=== PATIENT | female | born 1940 | race Caucasian/White ===

== ENCOUNTER → 2019-05-31 | Outpatient (CLI) | payer MEDICARE, OTHER ==
--- NOTE | 2019-05-31 16:19 | Diagnostic Imaging Report ---
INDICATION: Acute right ankle pain. COMPARISON: None. FINDINGS: Three views of the right ankle were obtained. There is no acute fracture or dislocation. No focal osseous lesions are seen. The surrounding soft tissue structures are unremarkable. There are no radiopaque foreign bodies. IMPRESSION: 1. No acute fracture or dislocation in the right ankle. Dictated by: Dictated on workstation # [id number]
== END ==
LOC: RAD FS 15:28
PROVIDERS: ATTEND Nurse Practitioner Family
DX: M25.571 Pain in right ankle and joints of right foot (principal)
CPT/HCPCS: 73610

== ENCOUNTER → 2020-11-18 | Emergency (ER) | payer MEDICARE, OTHER | LOC: EDUNIT# 14:35 → ER FS 14:36 | DX: R09.89 Other specified symptoms and signs involving the circulatory and respiratory systems (principal) ==

== ENCOUNTER 2021-07-03 14:54 | Inpatient (IN) | payer MEDICARE, OTHER ==
[~2021-07-03] VITALS: Ht 162.6 cm; Wt 67.8 kg
[2021-07-03 15:12] LABS: HEMATOCRIT 30 % (35-52); HEMOGLOBIN 9.7 g/dL (11.5-16.0); LYMPHOCYTES % (AUTO) 17 % (12-44); MEAN CORPUSCULAR HEMOGLOBIN 29 pg (25-34); MEAN CORPUSCULAR HGB CONC 32 g/dL (32-36); MEAN CORPUSCULAR VOLUME 91 fL (80-99); MEAN PLATELET VOLUME 12.3 fL (9.0-12.2); NEUTROPHILS % (AUTO) 73 % (42-75); PLATELET COUNT 154 10^3/uL (130-400); WHITE BLOOD COUNT 6.5 10^3/uL (4.3-11.0)
[2021-07-03 15:13] LABS: BASOPHILS % (AUTO) 1 % (0-10); EOSINOPHILS # (AUTO) 0.1 10^3/uL (0.0-0.3); EOSINOPHILS % (AUTO) 1 % (0-10); LYMPHOCYTES # (AUTO) 1.1 X 10^3 (1.0-4.0); MONOCYTES # (AUTO) 0.5 X 10^3 (0.0-1.0); MONOCYTES % (AUTO) 8 % (0-12); NEUTROPHILS # (AUTO) 4.7 X 10^3 (1.8-7.8)
--- NOTE | 2021-07-03 15:18 | ED General ---
General Chief Complaint: Neuro-Stroke Like Symptoms Stated Complaint: LWR EXT WEAKNESS; DIZZINESS History of Present Illness Date Seen by Provider: Jul 03, 2021 Time Seen by Provider: 15:00 Initial Comments 80-year-old female presents with some right lower extremity weakness, generalized weakness and some mild dizziness. Patient reports that she feels like her right leg is "dragging" they are unsure when this started but may be sometime early this morning. She has no other focal weakness. She does have some generalized weakness. She is a diabetic but has not checked her blood sugars in a few days. EMS reports that her blood sugar reading was high and reading was higher than what their machine reads. Patient would not give a reason for not checking her blood sugars recently. Patient denies any slurred speech, vision changes, upper extremity weakness or other systemic complaints Allergies and Home Medications Allergies Coded Allergies: codeine (Verified Allergy, Unknown, 07/03/21) Patient Home Medication List Home Medication List Reviewed: Yes Review of Systems Review of Systems Constitutional: dizziness, weakness EENTM: no symptoms reported Respiratory: no symptoms reported Cardiovascular: no symptoms reported Gastrointestinal: no symptoms reported Musculoskeletal: see HPI Skin: no symptoms reported Psychiatric/Neurological: See HPI Hematologic/Lymphatic: No Symptoms Reported Immunological/Allergic: no symptoms reported Past Nupnylq-Wzisea-Cqltir Hx Patient Social History Tobacco Use?: No Use of E-Cig and/or Vaping dev: No Substance use?: No Alcohol Use?: No Immunizations Up To Date First/Initial COVID19 Vaccinat: Not Currently Vaccinated Past Medical History Surgery/Hospitalization HX: DM; HTN Physical Exam Vital Signs Vital Signs - First Documented 07/03/21 14:54 Temp 36.7 Pulse 72 Resp 20 B/P (MAP) 135/42 (73) Pulse Ox 98 O2 Delivery Room Air Capillary Refill : Height, Weight, BMI Height: '" Weight: lbs. oz. kg; BMI Method: General Appearance: No Apparent Distress, WD/WN Eyes: Bilateral Eye Normal Inspection, Bilateral Eye PERRL HEENT: PERRL/EOMI, Moist Mucous Membranes Neck: Full Range of Motion, Non Tender, Supple Respiratory: Lungs Clear, Normal Breath Sounds Cardiovascular: Regular Rate, Rhythm, No Edema Gastrointestinal: Non Tender, Soft Extremity: Normal Capillary Refill, Normal Inspection, Normal Range of Motion Neurologic/Psychiatric: Alert, No Motor/Sensory Deficits, Normal Mood/Affect, paper pattern inspector II-XII Norm as Tested, Other (Patient with may be very minimal barely detectable right lower extremity weakness compared to but she still has 5 out of 5 strength with no significant abnormality) Skin: Normal Color, Warm/Dry Focused Exam Lactate Level 07/03/21 15:05: Lactic Acid Level 1.40 Lactic Acid Level Laboratory Tests Test 07/03/21 15:05 Lactic Acid Level 1.40 MMOL/L (0.50-2.00) Progress/Results/Core Measures Suspected Sepsis SIRS Temperature: Pulse: Respiratory Rate: Laboratory Tests 07/03/21 15:05: White Blood Count 6.5 Blood Pressure / Mean: 07/03/21 15:05: Lactic Acid Level 1.40 Laboratory Tests 07/03/21 15:05: Creatinine 1.63H, INR Comment 1.1, Platelet Count 154, Total Bilirubin 0.5 Results/Orders Lab Results Laboratory Tests Test 07/03/21 15:05 07/03/21 15:40 07/03/21 16:34 Range/Units White Blood Count 6.5 4.3-11.0 10^3/uL Red Blood Count 3.32 L 3.80-5.11 10^6/uL Hemoglobin 9.7 L 11.5-16.0 g/dL Hematocrit 30 L 35-52 % Mean Corpuscular Volume 91 80-99 fL Mean Corpuscular Hemoglobin 29 25-34 pg Mean Corpuscular Hemoglobin Concent 32 32-36 g/dL Red Cell Distribution Width 13.5 10.0-14.5 % Platelet Count 154 130-400 10^3/uL Mean Platelet Volume 12.3 H 9.0-12.2 fL Immature Granulocyte % (Auto) 0 % Neutrophils (%) (Auto) 73 42-75 % Lymphocytes (%) (Auto) 17 12-44 % Monocytes (%) (Auto) 8 0-12 % Eosinophils (%) (Auto) 1 0-10 % Basophils (%) (Auto) 1 0-10 % Neutrophils # (Auto) 4.7 1.8-7.8 X 10^3 Lymphocytes # (Auto) 1.1 1.0-4.0 X 10^3 Monocytes # (Auto) 0.5 0.0-1.0 X 10^3 Eosinophils # (Auto) 0.1 0.0-0.3 10^3/uL Basophils # (Auto) 0.0 0.0-0.1 10^3/uL Immature Granulocyte # (Auto) 0.0 0.0-0.1 10^3/uL Prothrombin Time 15.0 H 12.2-14.7 SEC INR Comment 1.1 0.8-1.4 Activated Partial Thromboplast Time 23 L 24-35 SEC Sodium Level 132 L 135-145 MMOL/L Potassium Level 5.6 H 3.6-5.0 MMOL/L Chloride Level 101 98-107 MMOL/L Carbon Dioxide Level 18 L 21-32 MMOL/L Anion Gap 13 5-14 MMOL/L Blood Urea Nitrogen 26 H 7-18 MG/DL Creatinine 1.63 H 0.60-1.30 MG/DL Estimat Glomerular Filtration Rate 30 BUN/Creatinine Ratio 16 Glucose Level 685 *H 70-105 MG/DL Glucometer 553 *H 464 *H 70-110 MG/DL Lactic Acid Level 1.40 0.50-2.00 MMOL/L Calcium Level 8.3 L 8.5-10.1 MG/DL Corrected Calcium 9.1 8.5-10.1 MG/DL Magnesium Level 2.0 1.6-2.4 MG/DL Total Bilirubin 0.5 0.1-1.0 MG/DL Aspartate Amino Transf (AST/SGOT) 11 5-34 U/L Alanine Aminotransferase (ALT/SGPT) 8 0-55 U/L Alkaline Phosphatase 79 40-136 U/L Troponin I < 0.30 <0.30 NG/ML Total Protein 5.5 L 6.4-8.2 GM/DL Albumin 3.0 L 3.2-4.5 GM/DL Urine Color YELLOW Urine Clarity CLOUDY Urine pH 6.0 5-9 Urine Specific [place] 1.020 1.016-1.022 Urine Protein NEGATIVE NEGATIVE Urine Glucose (UA) 4+ H NEGATIVE Urine Ketones 2+ H NEGATIVE Urine Nitrite NEGATIVE NEGATIVE Urine Bilirubin NEGATIVE NEGATIVE Urine Urobilinogen 0.2 < = 1.0 MG/DL Urine Leukocyte Esterase 3+ H NEGATIVE Urine RBC (Auto) 3+ H NEGATIVE Urine RBC NONE /HPF Urine WBC TNTC H /HPF Urine Squamous Epithelial Cells NONE /HPF Urine Crystals NONE /LPF Urine Bacteria LARGE H /HPF Urine Casts NONE /LPF Urine Mucus NEGATIVE /LPF Urine Culture Indicated YES My Orders Orders - TURNER,ARON L DO Ct Head Wo-R/O Stroke (07/03/21 14:56) Cbc With Automated Diff (07/03/21 14:56) Comprehensive Metabolic Panel (07/03/21 14:56) Lactic Acid Analyzer (07/03/21 14:56) Magnesium (07/03/21 14:56) Protime With Inr (07/03/21 14:56) Partial Thromboplastin Time (07/03/21 14:56) Ua Culture If Indicated (07/03/21 14:56) Accucheck Stat ONCE (07/03/21 14:56) Troponin I Fs (07/03/21 14:56) Ekg Tracing (07/03/21 14:56) Monitor-Rhythm Ecg Trace Only (07/03/21 14:56) Chest 1 View Ap/Pa Only (07/03/21 14:56) Lactated Ringers (Lr 1000 Ml Iv Solution (07/03/21 15:21) Insulin (Regular) Human (Novolin R (Per (07/03/21 16:00) Ceftriaxone (Rocephin) (07/03/21 16:00) Urine Culture (07/03/21 15:40) Insulin (Regular) Drip (07/03/21 17:00) Medications Given in ED Current Medications Medications Dose Ordered Sig/Sebastian Route Start Time Stop Time Status Last Admin Dose Admin Ceftriaxone Sodium 2000 mg/ Sodium Chloride 50 ml @ 240 mls/hr ONCE ONCE IV 07/03/21 16:00 07/03/21 16:12 DC 07/03/21 16:09 240 MLS/HR Insulin Human Regular 10 unit ONCE ONCE IV 07/03/21 16:00 07/03/21 16:01 DC 07/03/21 15:59 10 UNIT Vital Signs/I&O 07/03/21 14:54 Temp 36.7 Pulse 72 Resp 20 B/P (MAP) 135/42 (73) Pulse Ox 98 O2 Delivery Room Air Capillary Refill : Point of Care Testing Finger Stick Blood Glucose: 553 Blood Glucose Action Taken: Physician Notified Progress Note : Progress Note Patient with significantly elevated high blood sugar. Patient has not checked her blood sugars in at least a couple months. She was given 2 L IV prior to arrival by EMS due to her age I did not provide any further IV fluids. She was given 10 units IV insulin and her insulin went from the 600s to the 400s. Patient also has an acute cystitis. Along with some mild acute kidney injury due to the high blood sugar, acute urinary tract infection and mild kidney injur y in her age we will transfer her to the [facility] for further inpatient management. Discussed with Dr. Mendoza who accepted patient and will write orders ECG Initial ECG Impression Date: Jul 03, 2021 Initial ECG Impression Time: 15:17 Initial ECG Rate: 72 Initial ECG Rhythm: Normal Sinus Initial ECG Impression: Nonspecific Changes Comment sinus rhythm, RBBB, LVH, old infarct, no acute changes Diagnostic Imaging Diagonstic Imaging: CT Plain Films/CT/US/NM/MRI: head Comments Date of Exam:07/03/21 CT HEAD WO-R/O STROKE INDICATION: Right leg weakness. EXAMINATION: CT brain without contrast, 07/03/2021. FINDINGS: There is diffuse chronic ischemic disease in a periventricular and deep white matter distribution. No acute hemorrhage or infarct is seen. No mass, mass effect or midline shift appreciated. Paranasal sinuses and mastoid air cells clear. IMPRESSION: No acute intracranial process. Reviewed: Reviewed/Discussed Diagonstic Imaging: Xray Plain Films/CT/US/NM/MRI: chest Comments Date of Exam:07/03/21 CHEST 1 VIEW AP/PA ONLY EXAMINATION: Chest 1 view. HISTORY: Weakness. COMPARISON: None available. FINDINGS: Heart size and pulmonary vasculature are normal. The lungs are clear without consolidation, pleural effusion or pneumothorax. The osseous structures are intact. IMPRESSION: No acute radiographic abnormality in the chest. Reviewed: Reviewed by Me, Reviewed/Discussed Departure Impression Primary Impression: Diabetes mellitus with hyperglycemia, without long-term current use of insulin Qualified Codes: E11.65 - Type 2 diabetes mellitus with hyperglycemia Additional Impression: Acute cystitis with hematuria Disposition: 30 STILL A PATIENT Condition: Stable Admissions Decision to Admit Reason: Admit from ER (General) Decision to Admit/Date: Jul 03, 2021 Time/Decision to Admit Time: 16:49 Departure-Patient Inst. Referrals: NICOLE FAJARDO APRN (PCP) Primary Care Physician [facility] (Family) Primary Care Physician ARON TURNER DO Jul 03, 2021 15:18
[2021-07-03] MEDS ORDERED: LACTATED RINGERS 1,000 ML IV STA (15:21)
[2021-07-03 15:23] LABS: INR 1.1 (0.8-1.4)
--- NOTE | 2021-07-03 15:35 | Diagnostic Imaging Report ---
EXAMINATION: Chest 1 view. HISTORY: Weakness. COMPARISON: None available. FINDINGS: Heart size and pulmonary vasculature are normal. The lungs are clear without consolidation, pleural effusion or pneumothorax. The osseous structures are intact. IMPRESSION: No acute radiographic abnormality in the chest. Dictated by: Dictated on workstation # [id number]
[2021-07-03 15:43] LABS: POTASSIUM 5.6 MMOL/L (3.6-5.0); SODIUM 132 MMOL/L (135-145)
[2021-07-03 15:44] LABS: ALANINE AMINOTRANSFERASE 8 U/L (0-55); ALKALINE PHOSPHATASE 79 U/L (40-136); BILIRUBIN,TOTAL 0.5 MG/DL (0.1-1.0); BUN/CREATININE RATIO 16; CALCIUM 8.3 MG/DL (8.5-10.1); CARBON DIOXIDE 18 MMOL/L (21-32); CHLORIDE 101 MMOL/L (98-107); CREATININE SERUM 1.63 MG/DL (0.60-1.30); GFR ESTIMATED 30; GLUCOSE 685 MG/DL (70-105); TOTAL PROTEIN 5.5 GM/DL (6.4-8.2)
[2021-07-03] MEDS ORDERED: inSUlin (REGULAR) HUMAN 1 UNIT/0.01 ML (CHARGE PER UNIT) IV ONE ×2 (16:00)
[2021-07-03] MEDS ORDERED: cefTRIAXone 2,000 MG in NS (IVPB) 50 ML IV ONE (16:00)
[2021-07-03 16:02] LABS: CLARITY,URINE CLOUDY; COLOR,URINE YELLOW
[2021-07-03 16:03] LABS: GLUCOSE, URINE (UA) 4+ (NEGATIVE); KETONES,URINE 2+ (NEGATIVE); NITRITE,URINE NEGATIVE (NEGATIVE); PROTEIN,URINE NEGATIVE (NEGATIVE)
[2021-07-03 16:04] LABS: BACTERIA,URINE LARGE /HPF; BILIRUBIN,URINE NEGATIVE (NEGATIVE); LEUKOCYTE ESTERASE ,URINE 3+ (NEGATIVE); WBC,URINE TNTC /HPF
[2021-07-03] MEDS ORDERED: NS IV 1000 ML 1,000 ML IV SCH (18:30)
[2021-07-03] MEDS ORDERED: NALOXONE 0.4 MG/ML 1 ML (NARCAN) VIAL IV PRN (18:30)
[2021-07-03] MEDS ORDERED: cefTRIAXone 2,000 MG in NS (IVPB) 50 ML IV SCH (18:30)
[2021-07-03] MEDS ORDERED: POTASSIUM CL 10MEQ/50ML IVPB 50 ML IV SCH (18:30)
[2021-07-03] MEDS ORDERED: ONDANSETRON 4 MG/2 ML (SDV) Z0FRAN IVP PRN (18:30)
[2021-07-03] MEDS ORDERED: PATIENT MAY USE OWN MEDS, ALL PO SCH (18:30)
--- NOTE | 2021-07-03 18:54 | Tele-ICU Consult ---
Progress Note 80 y/o female, diabetic who has not checked her blood sugr regularly. Came to ED with non specifc complints BS found to be 685 Admitted to ICU for insulin drip and monitor electrolytes antibiotics started for possible cystitis, although asympytomatic Focused Exam Lactate Level 07/03/21 15:05: Lactic Acid Level 1.40 Height, Weight, BMI Height: '" Weight: lbs. oz. kg; 24.00 BMI Method: Lactic Acid Level Laboratory Tests Test 07/03/21 15:05 Lactic Acid Level 1.40 MMOL/L (0.50-2.00) Laboratory Tests 07/03/21 15:05 Labs Labs Laboratory Tests 07/03/21 15:05: White Blood Count 6.5, Red Blood Count 3.32L, Hemoglobin 9.7L, Hematocrit 30L, Mean Corpuscular Volume 91, Mean Corpuscular Hemoglobin 29, Mean Corpuscular Hemoglobin Concent 32, Red Cell Distribution Width 13.5, Platelet Count 154, Mean Platelet Volume 12.3H, Immature Granulocyte % (Auto) 0, Neutrophils (%) (Auto) 73, Lymphocytes (%) (Auto) 17, Monocytes (%) (Auto) 8, Eosinophils (%) (Auto) 1, Basophils (%) (Auto) 1, Neutrophils # (Auto) 4.7, Lymphocytes # (Auto) 1.1, Monocytes # (Auto) 0.5, Eosinophils # (Auto) 0.1, Basophils # (Auto) 0.0, Immature Granulocyte # (Auto) 0.0, Prothrombin Time 15.0H, INR Comment 1.1, Activated Partial Thromboplast Time 23L, Sodium Level 132L, Potassium Level 5.6H , Chloride Level 101, Carbon Dioxide Level 18L, Anion Gap 13, Blood Urea Nitrogen 26H, Creatinine 1.63H, Estimat Glomerular Filtration Rate 30, BUN/Creatinine Ratio 16, Glucose Level 685*H, Glucometer 553*H, Lactic Acid Level 1.40, Calcium Level 8.3L, Corrected Calcium 9.1, Magnesium Level 2.0, Total Bilirubin 0.5, Aspartate Amino Transf (AST/SGOT) 11, Alanine Aminotransferase (ALT/SGPT) 8, Alkaline Phosphatase 79, Troponin I < 0.30, Total Protein 5.5L, Albumin 3.0L 07/03/21 15:40: Urine Color YELLOW, Urine Clarity CLOUDY, Urine pH 6.0, Urine Specific [place] 1.020, Urine Protein NEGATIVE, Urine Glucose (UA) 4+H, Urine Ketones 2+H, Urine Nitrite NEGATIVE, Urine Bilirubin NEGATIVE, Urine Urobilinogen 0.2, Urine Leukocyte Esterase 3+H, Urine RBC (Auto) 3+H, Urine RBC NONE, Urine WBC TNTCH, Urine Squamous Epithelial Cells NONE, Urine Crystals NONE, Urine Bacteria LARGEH , Urine Casts NONE, Urine Mucus NEGATIVE, Urine Culture Indicated YES 07/03/21 16:34: Glucometer 464*H 07/03/21 18:15: Glucometer 347H DAVE STACK MD Jul 03, 2021 18:54
[2021-07-03] MEDS ORDERED: 1/2 NS IV SOLUTION 1,000 ML IV ONE (18:55)
[2021-07-03 19:00] LABS: HEMATOCRIT 31 % (35-52); HEMOGLOBIN 9.9 g/dL (11.5-16.0); MEAN CORPUSCULAR HEMOGLOBIN 29 pg (25-34); MEAN CORPUSCULAR HGB CONC 32 g/dL (32-36); MEAN CORPUSCULAR VOLUME 92 fL (80-99); MEAN PLATELET VOLUME 11.8 fL (9.0-12.2); PLATELET COUNT 194 10^3/uL (130-400); WHITE BLOOD COUNT 8.3 10^3/uL (4.3-11.0)
[2021-07-03 19:14] LABS: POTASSIUM 4.6 MMOL/L (3.6-5.0)
[2021-07-03 19:15] LABS: CALCIUM 8.3 MG/DL (8.5-10.1)
[2021-07-03 19:19] LABS: CREATININE SERUM 1.82 MG/DL (0.60-1.30)
[2021-07-03] MEDS: 1/2 NS IV SOLUTION 1,000 ML IV SCH ×2 (19:54→22:04)
[2021-07-03] MEDS: NS IV 1000 ML 1,000 ML IV SCH ×2 (19:55→22:04)
[2021-07-03] MEDS ORDERED: POTASSIUM CL 10MEQ/50ML IVPB 50 ML IV ONE (19:57)
[2021-07-03] MEDS: POTASSIUM CL 10MEQ/50ML IVPB 50 ML IV SCH ×3 (20:02→23:56)
[2021-07-03 21:14] LABS: POTASSIUM 4.7 MMOL/L (3.6-5.0)
[2021-07-03 21:15] LABS: CALCIUM 8.3 MG/DL (8.5-10.1)
[2021-07-03 21:20] LABS: CREATININE SERUM 1.75 MG/DL (0.60-1.30)
[2021-07-03] MEDS: D5 1/2 NS 1000 ML IV SOLUTION 1,000 ML IV SCH (21:58)
[2021-07-04] MEDS: 1/2 NS IV SOLUTION 1,000 ML IV SCH ×3 (01:01→11:48)
[2021-07-04 01:20] LABS: CALCIUM 7.9 MG/DL (8.5-10.1)
[2021-07-04 01:24] LABS: CREATININE SERUM 1.71 MG/DL (0.60-1.30)
[2021-07-04] MEDS: POTASSIUM CL 10MEQ/50ML IVPB 50 ML IV SCH ×3 (01:53→06:58)
[2021-07-04] MEDS: D5 1/2 NS 1000 ML IV SOLUTION 1,000 ML IV SCH ×2 (01:59→06:13)
[2021-07-04 05:15] LABS: BASOPHILS % (AUTO) 1 % (0-10); EOSINOPHILS # (AUTO) 0.2 10^3/uL (0.0-0.3); EOSINOPHILS % (AUTO) 3 % (0-10); HEMATOCRIT 29 % (35-52); HEMOGLOBIN 9.3 g/dL (11.5-16.0); LYMPHOCYTES # (AUTO) 2.1 10^3/uL (1.0-4.0); LYMPHOCYTES % (AUTO) 29 % (12-44); MEAN CORPUSCULAR HEMOGLOBIN 29 pg (25-34); MEAN CORPUSCULAR HGB CONC 32 g/dL (32-36); MEAN CORPUSCULAR VOLUME 91 fL (80-99); MEAN PLATELET VOLUME 11.9 fL (9.0-12.2); MONOCYTES # (AUTO) 0.8 10^3/uL (0.0-1.0); MONOCYTES % (AUTO) 11 % (0-12); NEUTROPHILS % (AUTO) 56 % (42-75); PLATELET COUNT 179 10^3/uL (130-400)
[2021-07-04 05:38] LABS: ALBUMIN 2.8 GM/DL (3.2-4.5); POTASSIUM 4.7 MMOL/L (3.6-5.0)
[2021-07-04 05:39] LABS: CALCIUM 7.9 MG/DL (8.5-10.1)
[2021-07-04 05:41] LABS: TOTAL PROTEIN 5.2 GM/DL (6.4-8.2)
[2021-07-04 05:42] LABS: BILIRUBIN,TOTAL 0.3 MG/DL (0.1-1.0)
[2021-07-04 05:44] LABS: CREATININE SERUM 1.44 MG/DL (0.60-1.30); PHOSPHORUS 2.1 MG/DL (2.3-4.7)
[2021-07-04 05:47] LABS: MAGNESIUM 1.8 MG/DL (1.6-2.4)
[2021-07-04] MEDS: FAMOTIDINE 20 MG (PEPCID) TABLET PO SCH (08:59)
[2021-07-04] MEDS: cefTRIAXone 1 GM/50 ML (PRE-MIX) IV SCH (08:59)
[2021-07-04] MEDS: NS IV 1000 ML 1,000 ML IV SCH ×3 (09:04→19:29)
[2021-07-04 09:49] LABS: POTASSIUM 4.9 MMOL/L (3.6-5.0)
[2021-07-04 09:55] LABS: CREATININE SERUM 1.42 MG/DL (0.60-1.30)
[2021-07-04] MEDS: inSUlin ASPART (NovoLOG) 1 UNIT/0.01 ML (CHARGE PER UNIT) SC SCH ×3 (11:49→20:22)
--- NOTE | 2021-07-04 11:52 | History & Physical-Hospitalist ---
History of Present Illness HPI/Chief Complaint Chief complaint: Severe hyperglycemia History of present illness: This is an 80-year-old white female clinic patient of Livier Allen who has a past medical history of diabetes but does not check her sugar who presented to the [facility] with weakness found to have significantly elevated blood sugar in the 600 range. UTI was also diagnosed placed on Rocephin empirically. She was placed in the ICU on an insulin drip for hyperglycemic hyperosmolar nonketotic state. She is since had much improved sugars insulin drip has been discontinued and is currently being moved to fourth floor. Source: patient, family Exam Limitations: other (Poor recall) Date Seen 07/04/21 Time Seen by a Provider: 11:30 Attending Physician Omaira Mendoza Amanda S Aprn Referring Physician Date of Admission Jul 03, 2021 at 18:15 Home Medications & Allergies Home Medications Reviewed patient Home Medication Reconciliation performed by pharmacy medication reconciliations combination technician and/or nursing. Patients Allergies have been reviewed. Allergies Allergies Coded Allergies egg (Verified Allergy, Mild, Nausea, 07/04/21) codeine (Verified Allergy, Unknown, 07/03/21) Past Uvxilkw-Rsntnz-Jsrfor Hx Patient Social History Marrital Status: Employed/Student: retired Tobacco Use?: No Smoking Status: Never a Smoker Use of E-Cig and/or Vaping dev: No Substance use?: No Alcohol Use?: No Pt feels they are or have been: No Immunizations Up To Date Date of Influenza Vaccine: Jun 02, 2021 First/Initial COVID19 Vaccinat: Not Currently Vaccinated Current Status status: No status: No Advance Directives: No Communicates: Verbally Primary Language: Romansh Preferred Spoken Language: Romansh Is interpretation needed?: No Sensory deficits: Vision impairment Implanted or Applied Medical D: Stents Past Medical History Dementia Diabetes, Non-Insulin dep Review of Systems Constitutional: see HPI, dizziness, malaise, weakness EENTM: no symptoms reported Respiratory: no symptoms reported Cardiovascular: no symptoms reported Gastrointestinal: no symptoms reported Genitourinary: no symptoms reported Musculoskeletal: no symptoms reported Skin: no symptoms reported Psychiatric/Neurological: No Symptoms Reported All Other Systems Reviewed Negative Unless Noted: Yes Physical Exam Physical Exam Vital Signs Vital Signs - First Documented 07/03/21 14:54 Temp 36.7 Pulse 72 Resp 20 B/P (MAP) 135/42 (73) Pulse Ox 98 O2 Delivery Room Air Capillary Refill : Less Than 3 Seconds Height, Weight, BMI Height: '" Weight: lbs. oz. kg; 24.01 BMI Method: General Appearance: No Apparent Distress, Anxious, Chronically ill Eyes: Right Eye Normal Inspection, Right Eye PERRL HEENT: PERRL/EOMI, Normal ENT Inspection, Pharynx Normal, Moist Mucous Membranes Neck: Full Range of Motion, Normal Inspection, Non Tender Respiratory: Chest Non Tender, Lungs Clear, Normal Breath Sounds, No Accessory Muscle Use, No Respiratory Distress Cardiovascular: Regular Rate, Rhythm, No Edema, No Gallop, No JVD, No Murmur, Normal Peripheral Pulses Gastrointestinal: Normal Bowel Sounds, No Organomegaly, No Pulsatile Mass, Non Tender, Soft Back: Normal Inspection, No CVA Tenderness, No Vertebral Tenderness Extremity: Normal Capillary Refill, Normal Inspection, Normal Range of Motion, Non Tender, No Calf Tenderness, No Pedal Edema Neurologic/Psychiatric: Alert, Oriented x3, No Motor/Sensory Deficits, Normal Mood/Affect Skin: Normal Color, Warm/Dry Lymphatic: No Adenopathy Results Results/Procedures Labs Laboratory Tests 07/03/21 15:05 07/03/21 18:47 07/03/21 20:57 07/04/21 00:55 07/04/21 05:00 07/04/21 09:13 Patient resulted labs reviewed. Assessment/Plan Admission Diagnosis Assessment: Hyperosmolar hyperglycemic nonketotic state Diabetes noncompliant with checking sugar Acute UTI Poor recall/dementia Dehydration Plan: Transition to subcu insulin Moved to fourth floor Diabetic education Admission Status: Inpatient Order (span 2 midnights) Reason for Inpatient Admission: HHNS Diagnosis/Problems Diagnosis/Problems (1) Hyperosmolar hyperglycemic state (HHS) (2) Diabetes mellitus with hyperglycemia, without long-term current use of insulin Status: Acute Qualifiers: Diabetes mellitus type: type 2 Qualified Codes: E11.65 - Type 2 diabetes mellitus with hyperglycemia (3) Acute cystitis with hematuria Status: OMAIRA Moseley DO Jul 04, 2021 11:52
[2021-07-04] MEDS ORDERED: cloNIDine 0.1 MG (CATAPRES) TAB PO PRN (19:30)
[2021-07-04] MEDS ORDERED: amLODIPine 5 MG (NORVASC) TAB PO ONE (19:30)
[2021-07-05 05:43] LABS: BASOPHILS % (AUTO) 1 % (0-10); EOSINOPHILS # (AUTO) 0.3 10^3/uL (0.0-0.3); EOSINOPHILS % (AUTO) 4 % (0-10); HEMATOCRIT 30 % (35-52); HEMOGLOBIN 9.5 g/dL (11.5-16.0); LYMPHOCYTES # (AUTO) 2.1 10^3/uL (1.0-4.0); LYMPHOCYTES % (AUTO) 34 % (12-44); MEAN CORPUSCULAR HEMOGLOBIN 29 pg (25-34); MEAN CORPUSCULAR HGB CONC 32 g/dL (32-36); MEAN CORPUSCULAR VOLUME 91 fL (80-99); MEAN PLATELET VOLUME 11.5 fL (9.0-12.2); MONOCYTES # (AUTO) 0.6 10^3/uL (0.0-1.0); MONOCYTES % (AUTO) 10 % (0-12); NEUTROPHILS # (AUTO) 3.1 10^3/uL (1.8-7.8); NEUTROPHILS % (AUTO) 51 % (42-75); PLATELET COUNT 180 10^3/uL (130-400); WHITE BLOOD COUNT 6.1 10^3/uL (4.3-11.0)
[2021-07-05 05:59] LABS: ALBUMIN 2.7 GM/DL (3.2-4.5)
[2021-07-05 06:00] LABS: POTASSIUM 4.5 MMOL/L (3.6-5.0)
[2021-07-05 06:04] LABS: BILIRUBIN,TOTAL 0.2 MG/DL (0.1-1.0)
[2021-07-05 06:06] LABS: CREATININE SERUM 1.22 MG/DL (0.60-1.30)
[2021-07-05] MEDS: inSUlin ASPART (NovoLOG) 1 UNIT/0.01 ML (CHARGE PER UNIT) SC SCH ×4 (06:12→21:03)
[2021-07-05 06:47] LABS: ABG BASE EXCESS -7.9 MMOL/L (-2.5-2.5); ABG OXYGEN SATURATION 97 % (94-100); ABG PCO2 33 MMHG (35-45); ABG PO2 84 MMHG (79-93)
[2021-07-05 06:49] LABS: ABG PH 7.33 (7.37-7.43); ALLENS TEST YES-POS; INSPIRED O2 ROOM AIR; PATIENT TEMP 36.6; VENTILATOR NO
--- NOTE | 2021-07-05 09:41 | Physical Therapy Evaluation ---
PT Evaluation-General Medical Diagnosis Admission Date Jul 03, 2021 at 18:15 Medical Diagnosis: HHS Onset Date: Jul 03, 2021 Therapy Diagnosis Therapy Diagnosis: debility Precautions Precautions/Isolations: Fall Prevention, Standard Precautions Referral Physician: Kelly Reason for Referral: Evaluation/Treatment Medical History Pertinent Medical History: DM Current History EMS secondary to right LE weakness Reviewed History: Yes Social History Home: Current Living Status: Spouse Entry Into Home: Stairs With Railing PT Steps Into Home: 3 Prior Prior Level of Function SCALE: Activities may be completed with or without assistive devices. 7-Sfxzjhmwlc-mayjqnm completes the activity by him/herself with no assistance from a helper. 5-Set-up or Clean-up Assistance-helper sets up or cleans up; patient completes activity. [place]ese assists only prior to or following the activity. 4-Supervision or Touching Assistance-helper provides verbal cues and/or touching/steadying and/or contact guard assistance as patient completes activity. Assistance may be provided throughout the activity or intermittently. 3-Partial/Moderate Assistance-helper does LESS THAN HALF the effort. [place]ese lifts, holds or supports trunk or limbs, but provides less than half the effort. 2-Substantial/Maximal Assistance-helper does MORE THAN HALF the effort. [place]weese lifts or holds trunk or limbs and provides more than half the effort. 8-Wpvzyguli-doseku does ALL the effort. Patient does none of the effort to complete the activity. Or, the assistance of 2 or more helpers is required for the patient to complete the activity. If activity was not attempted, code reason: 7-Patient Refused. 9-Not Applicable-not attempted and the patient did not perform the activity before the current illness, exacerbation or injury. 10-Not Attempted due to Environmental Limitations-(lack of equipment, weather restraints, etc.). 88-Not Attempted due to Medical Conditions or Safety Concerns. Bed Mobility: 6 Transfers (B,C,W/C): 6 Gait: 6 Stairs: 6 Indoor Mobility (Ambulation): Independent Stairs: Independent Prior Devices Use: None PT Evaluation-Current Subjective Patient agrees to PT. Currently no C/o Pain Numeric Pain Scale: 0-No Pain Location: No Pain Reported Objective Patient Orientation: Normal For Age Attachments: Rios Catheter, IV ROM/Strength ROM Lower Extremities bilateral LE WFL Strength Lower Extremities 4/5 grossly bilateral LE Integumentary/Posture Bowel Incontinence: No Bladder Incontinence: Rios Cath Posture WFL Neuromuscular (Tone, Coordination, Reflexes) grossly intact Sensory Vision: Wears Glasses Hearing: Functional Transfers Roll Left to Right (QC): 6 Sit to Lying (QC): 6 Lying to Sitting/Side of Bed(Q: 6 Sit to Stand (QC): 4 Chair/Hxl-fg-Cuqrz Xfer(QC): 4 SBA on initial evaluation for safety Gait Does the Patient Walk?: Yes Mode of Locomotion: Walk Anticipated Mode of Locomotion: Walk Walk 10 feet (QC): 4 (SBA) Walk 50 ft with 2 Turns(QC): 4 (SBA) Walk 150 ft (QC): 4 (SBA) Distance: 300' Gait Assistive Device: FWW Comments/Gait Description FWW for safety Balance Sitting Static: Normal Sitting Dynamic: Normal Standing Static: Normal Standing Dynamic: Normal Picking up an Object (QC): 5 Assessment/Needs 80 y.o. female, will be seen short term by skilled PT to address functional strength and mobility to ensure safe return to home with family at maximum LOF. Rehab Potential: Fair PT Correction Goals Option Trader Goals PT Option Trader Goals Time Frame: Jul 16, 2021 Roll Left & Right (QC): 6 Sit to Lying (QC): 6 Lying-Sitting on Side/Bed(QC): 6 Sit to Stand (QC): 6 Chair/Vgs-kk-Udvad Xfer(QC): 6 Toilet Transfer (QC): 6 Walk 10 feet (QC): 6 Walk 50ft with 2 Turns (QC): 6 Walk 150 ft (QC): 6 1 Step (curb) (QC): 6 4 Steps (QC): 6 PT Plan Problem List Problem List: Safety Treatment/Plan Treatment Plan: Continue Plan of Care Treatment Plan: Education, Functional Activity Arcenio, Functional Strength, Gait, Safety, Therapeutic Exercise, Transfers Treatment Duration: Jul 16, 2021 Frequency: 6 times per week Estimated Hrs Per Day: .5 hour per day Patient and/or Family Agrees t: Yes Time/GCodes Time In: 824 Time Out: 838 Total Billed Treatment Time: 14 Total Billed Treatment 1 visit EVModC 14 min LYNN CALHOUN PT Jul 05, 2021 09:41
[2021-07-05] MEDS: amLODIPine 5 MG (NORVASC) TAB PO SCH (09:45)
[2021-07-05] MEDS: cefTRIAXone 1 GM/50 ML (PRE-MIX) IV SCH (09:45)
[2021-07-05] MEDS: FAMOTIDINE 20 MG (PEPCID) TABLET PO SCH (09:45)
--- NOTE | 2021-07-05 09:56 | Occupational Therapy Eval ---
OT Evaluation-General/PLF Medical Diagnosis Admission Date Jul 03, 2021 at 18:15 Medical Diagnosis: HHS Onset Date: Jul 03, 2021 Therapy Diagnosis Therapy Diagnosis: n/a Precautions Precautions/Isolations: Fall Prevention, Standard Precautions Referral Physician: Kelly Andersen Reason: Evaluation/Treatment Medical History Pertinent Medical History: DM Current History presents to [facility] with weakness. Found to have elevated BS in 600 range. UTI also diagnosed. Pt verbalizes living with her spouse in a trailer, 2 steps to enter. She states she was indep with all adls and iadls prior to admission. 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 Pt states that she used to check her BS's but they were always within good range that she just stopped checking them. Diabetic Education would be beneficial. Reviewed History: Yes Social History Home: trailer home Current Living Status: Spouse Entry Into Home: Stairs With Railing Steps Into Home: 2 ADL-Prior Level of Function SCALE: Activities may be completed with or without assistive devices. 3-Zsivzrwlcb-ptbyire completes the activity by him/herself with no assistance from a helper. 5-Set-up or Clean-up Assistance-helper sets up or cleans up; patient completes activity. Ideal assists only prior to or following the activity. 4-Supervision or Touching Assistance-helper provides verbal cues and/or t ouching/steadying and/or contact guard assistance as patient completes activity. Assistance may be provided throughout the activity or intermittently. 3-Partial/Moderate Assistance-helper does LESS THAN HALF the effort. Ideal lifts, holds or supports trunk or limbs, but provides less than half the effort. 2-Substantial/Maximal Assistance-helper does MORE THAN HALF the effort. Ideal lifts or holds trunk or limbs and provides more than half the effort. 4-Ezlvjpvxc-lhokvg does ALL the effort. Patient does none of the effort to complete the activity. Or, the assistance of 2 or more helpers is required for the patient to complete the activity. If activity was not attempted, code reason: 7-Patient Refused. 9-Not Applicable-not attempted and the patient did not perform the activity before the current illness, exacerbation or injury. 10-Not Attempted due to Environmental Limitations-(lack of equipment, weather restraints, etc.). 88-Not Attempted due to Medical Conditions or Safety Concerns. Self Care: Independent Functional Cognition: Independent DME/Equipment: Bath Chair, Grab Bars, Shower Drive Self: Yes OT Current Status Subjective Only complaint of pain on top of L foot. Pt reports feels like bruise. Location inspected, no redness or signs of irritation. RN informed and pt educated on checking feet frequently due to being a diabetic. Appearance Sitting in chair at OT departure. RN and daughter in room. Mental Status/Objective Attachments: Rios Catheter, IV Current Glasses/Contacts: Yes Hand Dominance: Right Upper Extremity ROM WNL Upper Extremity Strength 3+/5 grossly ADL-Treatment On/Off Footwear (QC): 5 Toileting Hygiene (QC): 4 Pt reclined in bed at OT arrival, agreeable to eval. Able to sit EOB without assist. Denies dizziness. She ambulated to/from bathroom with walker and SBA for management of IV pole only. Able to lower/stand from toilet with use of grab bar, no unsteadiness present with zero UE support during clothing management. Pt denies any concerns regarding self cares. OT to discharge at this time. Education OT Patient Education: Correct positioning, Energy conservation, Purpose of tx/functional activities Teaching Recipient: Patient, Family Teaching Methods: Discussion Response to Teaching: Verbalize Understanding OT Deck Hand Goals Deck Hand Goals 1=Demonstrate adherence to instructed precautions during ADL tasks. 2=Patient will verbalize/demonstrate understanding of assistive devices/modifications for ADL. 3=Patient will improve strength/tolerance for activity to enable patient to perform ADL's. OT Education/Plan Problem List/Assessment Assessment: No Skilled OT Needs ID'd Discharge Recommendations Plan/Recommendations: Discontinue OT Therapy Discharge Recommendati: Home & Family Treatment Plan/Plan of Care Treatment,Training & Education: Yes Patient would benefit from OT for education, treatment and training to promote independence in ADL's, mobility, safety and/or upper extremity function for ADL's. Plan of Care: ADL Retraining, Functional Mobility, UE Funct Exercise/Act Treatment Duration: Jul 05, 2021 Frequency: 1 time per week Estimated Hrs Per Day: .25 hour per day Agreement: Yes Time/GCodes Start Time: 09:33 Stop Time: 09:48 Total Time Billed (hr/min): 15 Billed Treatment Time 1 visit, Elissa Ross OT Jul 05, 2021 09:56
[2021-07-05] MEDS ORDERED: NS IV 1000 ML 1,000 ML ONE (10:51)
--- NOTE | 2021-07-05 11:32 | Progress Note - Hospitalist ---
JOHANNA GUIDRY 07/05/21 1132: Subjective HPI/CC On Admission Date Seen by Provider: Jul 05, 2021 Time Seen by Provider: 08:19 Chief complaint: Severe hyperglycemia Subjective/Events-last exam Ms. Doe reports feeling very good this morning with no complaints or issues. Her daughter was at her bedside during rounds. She says she wants to go home today and felt good enough to go home. Her labs showed an elevated beta- hydroxybutyrate at 0.73 today, trending upward. Her glucose was more stable at 117 this morning. D/t her labs the plan is to keep her for at least one more day to make sure she stays stable. She will require insulin upon d/c with diabetic education for her and her family. Review of Systems General: Chills; No Fatigue Pulmonary: No Dyspnea, No Cough Cardiovascular: No: Chest Pain, Palpitations Gastrointestinal: Constipation; No: Nausea, Vomiting, Abdominal Pain Genitourinary: No Dysuria, No Frequency Focused Exam Lactate Level 07/03/21 15:05: Lactic Acid Level 1.40 07/05/21 10:32: Lactic Acid Level 1.53 Capillary Refill: Less Than 3 Seconds Peripheral Pulses: 2+ Radial Pulses (R), 2+ Radial Pulses (L) Lactic Acid Level Laboratory Tests Test 07/05/21 10:32 Lactic Acid Level 1.53 MMOL/L (0.50-2.00) Objective Exam Vital Signs Vital Signs Date Time Temp Pulse Resp B/P (MAP) Pulse Ox O2 Delivery O2 Flow Rate FiO2 07/05/21 09:00 Room Air 07/05/21 08:00 36.3 70 19 163/72 99 Capillary Refill : Less Than 3 Seconds General Appearance: No Apparent Distress, WD/WN HEENT: PERRL/EOMI, Moist Mucous Membranes; No Scleral Icterus (L), No Scleral Icterus (R) Neck: Normal Inspection, Non Tender; No Lymphadenopathy (L), No Lymphadenopathy (R) Respiratory: Chest Non Tender, Lungs Clear, Normal Breath Sounds, No Accessory Muscle Use, No Respiratory Distress Cardiovascular: Regular Rate, Rhythm, No Murmur, Normal Peripheral Pulses Gastrointestinal: Normal Bowel Sounds, Non Tender, Soft Extremity: Normal Capillary Refill, Normal Inspection Neurologic/Psychiatric: Alert, Oriented x3, No Motor/Sensory Deficits, Normal Mood/Affect, engine repairer service II-XII Norm as Tested Skin: Normal Color, Warm/Dry Lymphatic: No Adenopathy (Head and neck) Results/Procedures Lab Laboratory Tests 07/05/21 05:12 Patient resulted labs reviewed. Assessment/Plan Assessment and Plan Assess & Plan/Chief Complaint Assessment HHS - Elevated beta-hydroxybutyrate at 0.73 today, trending upward Diabetes - Noncompliant with checking sugar Acute UTI - Symptoms resolving Dehydration Plan IV fluids and closely monitor Transition to subcu insulin Diabetic education for her and her family OMAIRA SALAZAR DO 07/06/21 0544: Subjective Subjective/Events-last exam Pt was originally going to go home but acidosis and elevated beta hydroxybutyrate is consistent with worsening acidosis Klebsiella UTI requiring UTI treatment with Rocephin Improved sugars Hep Locking IV fluid Will DC the catheter After this was noted I did restart IV fluids at 100cc an hour of normal saline Review of Systems Neurological: Confusion Objective Exam General Appearance: No Apparent Distress, WD/WN, Chronically ill Respiratory: Lungs Clear, Normal Breath Sounds Cardiovascular: Regular Rate, Rhythm Neurologic/Psychiatric: Alert, Oriented x3, Disoriented Assessment/Plan Assessment and Plan Assess & Plan/Chief Complaint Manage agitation and sundowning IV fluids Monitor blood sugars Hemoglobin A1c 14.4 indicating extremely poor control for months Supervisory-Addendum Brief Verification & Attestation Participated in pt care: history, MDM, physical Personally performed: exam, history, MDM, supervision of care Care discussed with: Medical Student Procedures: n/a Results interpretation: Verified all documentation Verification and Attestation of Medical Student E/M Service A medical student performed and documented this service in my presence. I reviewed and verified all information documented by the medical student and made modifications to such information, when appropriate. I personally performed the physical exam and medical decision making. Omaira Salazar, Jul 06, 2021,05:42 JOHANNA GUIDRY Jul 05, 2021 11:32 OMAIRA SALAZAR DO Jul 06, 2021 05:44
[2021-07-05] MEDS: NS IV 1000 ML 1,000 ML IV SCH ×2 (12:26→21:03)
[2021-07-05] MEDS ORDERED: LOSA50TA63 PO (14:28)
[2021-07-05] MEDS ORDERED: CARV12.53 PO (14:28)
[2021-07-05] MEDS ORDERED: DAPA10TA PO (14:28)
[2021-07-05] MEDS ORDERED: SIMV20TA26 PO (14:30)
[2021-07-05] MEDS ORDERED: LATA7.5D OP (14:30)
[2021-07-05] MEDS ORDERED: ASPI-999 PO (14:31)
[2021-07-05] MEDS ORDERED: FERR-84 PO (14:32)
[2021-07-05] MEDS ORDERED: ACET-2267 PO (14:32)
[2021-07-05] MEDS ORDERED: DOCU-26 PO (14:34)
[2021-07-05] MEDS ORDERED: LATA2.5D19 OP (14:54)
[2021-07-05] MEDS ORDERED: ZIPRASIDONE 20 MG INJ (GEODON) VIAL IM PRN (20:15)
[2021-07-05] MEDS ORDERED: HALOPERIDOL 5 MG/ML (HALDOL) VIAL IM PRN (20:15)
[2021-07-05] MEDS ORDERED: LORazepam INJ 2 MG/ML (ATIVAN) VIAL IVP PRN (20:15)
[2021-07-05] MEDS ORDERED: WATER (STERILE) FOR INJ 10 ML BTL INJ SCH (20:15)
[2021-07-05 21:18] LABS: POTASSIUM 4.9 MMOL/L (3.6-5.0)
[2021-07-05 21:19] LABS: CALCIUM 8.4 MG/DL (8.5-10.1)
[2021-07-05 21:24] LABS: CREATININE SERUM 1.35 MG/DL (0.60-1.30)
[2021-07-05] MEDS ORDERED: ACETAMINOPHEN 500 MG TAB (TYLENOL) PO PRN (21:45)
[2021-07-05] MEDS ORDERED: DOCUSATE SODIUM 100 MG (COLACE) CAP PO PRN (21:45)
[2021-07-05] MEDS: OLANZapine 5 MG (ZyPREXA) TAB PO SCH (21:58)
[2021-07-06] MEDS: ACETAMINOPHEN 500 MG TAB (TYLENOL) PO PRN ×2 (01:38→16:53)
[2021-07-06] MEDS ORDERED: FUROSEMIDE 40 MG/4 ML INJ (LASIX) IVP ONE (05:30)
[2021-07-06] MEDS ORDERED: RT-ALBUTEROL SULF 2.5 MG/3 ML PRE-MIX VIAL INH ONE (05:30)
[2021-07-06] MEDS ORDERED: DEXTROSE 50% 50 ML (IMS) SYR IV ONE (05:30)
--- NOTE | 2021-07-06 05:54 | Diagnostic Imaging Report ---
HISTORY: Hypoxia COMPARISON: 07/03/2021 TECHNIQUE: Frontal view of the chest FINDINGS: There is elevation of the right hemidiaphragm which is stable since the prior study. There are increased airspace opacities in the left lung base and the right upper lobe. The cardiac silhouette is stable in size. There is increased central vascular congestion. No pleural effusion or pneumothorax is seen. IMPRESSION: 1. Airspace opacities in the left lung base and the right upper lobe, concerning for infection or possibly edema. 2. Mild central vascular congestion. Dictated by: Dictated on workstation # [id number]
[2021-07-06 06:13] LABS: BASOPHILS # (AUTO) 0.1 10^3/uL (0.0-0.1); BASOPHILS % (AUTO) 0 % (0-10); EOSINOPHILS % (AUTO) 0 % (0-10); HEMATOCRIT 33 % (35-52); HEMOGLOBIN 10.9 g/dL (11.5-16.0); LYMPHOCYTES # (AUTO) 1.1 10^3/uL (1.0-4.0); LYMPHOCYTES % (AUTO) 8 % (12-44); MEAN CORPUSCULAR HEMOGLOBIN 30 pg (25-34); MEAN CORPUSCULAR HGB CONC 33 g/dL (32-36); MEAN CORPUSCULAR VOLUME 90 fL (80-99); MEAN PLATELET VOLUME 11.1 fL (9.0-12.2); MONOCYTES # (AUTO) 1.5 10^3/uL (0.0-1.0); MONOCYTES % (AUTO) 12 % (0-12); NEUTROPHILS # (AUTO) 10.5 10^3/uL (1.8-7.8); NEUTROPHILS % (AUTO) 79 % (42-75); PLATELET COUNT 239 10^3/uL (130-400); WHITE BLOOD COUNT 13.3 10^3/uL (4.3-11.0)
[2021-07-06 06:20] LABS: ABG BASE EXCESS -9.4 MMOL/L (-2.5-2.5); ABG OXYGEN SATURATION 98 % (94-100); ABG PCO2 34 MMHG (35-45); ABG PO2 106 MMHG (79-93); ABG TCO2 17.1 MMOL/L (21.0-31.0)
[2021-07-06] MEDS: inSUlin ASPART (NovoLOG) 1 UNIT/0.01 ML (CHARGE PER UNIT) SC SCH ×4 (06:21→21:43)
[2021-07-06 06:24] LABS: ABG PH 7.29 (7.37-7.43); ALLENS TEST YES-POS; INSPIRED O2 3; PATIENT TEMP 36.4; VENTILATOR NO
[2021-07-06 06:34] LABS: ALBUMIN 3.3 GM/DL (3.2-4.5); POTASSIUM 4.3 MMOL/L (3.6-5.0)
[2021-07-06 06:35] LABS: CALCIUM 8.8 MG/DL (8.5-10.1)
[2021-07-06 06:36] LABS: TOTAL PROTEIN 6.5 GM/DL (6.4-8.2)
[2021-07-06 06:38] LABS: BILIRUBIN,TOTAL 0.3 MG/DL (0.1-1.0)
[2021-07-06 06:40] LABS: CREATININE SERUM 1.2 MG/DL (0.60-1.30)
[2021-07-06] MEDS: RT-ALBUTEROL SULF 2.5 MG/3 ML PRE-MIX VIAL INH SCH ×3 (09:16→20:59)
--- NOTE | 2021-07-06 09:44 | Consultation-Cardiology ---
HPI-Cardiology Cardiology Consultation Date of Consultation 07/06/21 Date of Admission Time Seen by Provider: 08:19 Indication: Elevated BNP HPI Patient is an 80 y/o female with hx of HTN, HLP, DM. Admitted for poorly controlled DM with HHS, UTI, confusion. Has hx of dementia. Workup done showing mildly elevated BNP. Upon interviewing patient she is confused, only oriented to self at this time. Exercise Instruct at bedside, denies any known hx of CHF. Home Medications & Allergies Allergies: Coded Allergies: egg (Verified Allergy, Mild, Nausea, 07/04/21) codeine (Verified Allergy, Unknown, 07/03/21) Home Medication List Reviewed: Yes [facility] Patient Social History Marital Status: Employed/Student: retired Smoking Status: Never a Smoker Have you traveled recently?: No Alcohol Use?: No Immunizations Up To Date Date of Influenza Vaccine: Jun 02, 2021 Past Medical History HTN, HLP, DM, dementia Review of Systems-General Review of Systems ROS-Unable to Obtain: unable to obtain full ROS Constitutional: see HPI, dizziness, malaise, weakness EENTM: see HPI, no symptoms reported Respiratory: no symptoms reported, see HPI Cardiovascular: no symptoms reported All Other Systems Reviewed Negative Unless Noted: Yes Reviewed Test Results Reviewed Test Results Lab Laboratory Tests 07/05/21 10:32: Lactic Acid Level 1.53 07/05/21 11:36: Glucometer 311H 07/05/21 15:36: Glucometer 198H 07/05/21 20:38: Glucometer 216H 07/05/21 21:04: Sodium Level 136, Potassium Level 4.9, Chloride Level 109H, Carbon Dioxide Level 18L, Anion Gap 9, Blood Urea Nitrogen 12, Creatinine 1.35H, Estimat Glomerular Filtration Rate 38, BUN/Creatinine Ratio 9, Glucose Level 216H, Calcium Level 8.4L, Beta-Hydroxybutyrate (Chem panel) 0.30H 07/06/21 02:41: Glucometer 77 07/06/21 05:18: Glucometer 67L 07/06/21 06:00: Sodium Level 138, Potassium Level 4.3, Chloride Level 111H, Carbon Dioxide Level 17L, Anion Gap 10, Blood Urea Nitrogen 10, Creatinine 1.20, Estimat Glomerular Filtration Rate 43, BUN/Creatinine Ratio 8, Glucose Level 103, Calcium Level 8.8, White Blood Count 13.3H, Red Blood Count 3.70L, Hemoglobin 10.9L, Hematocrit 33L, Mean Corpuscular Volume 90, Mean Corpuscular Hemoglobin 30, Mean Corpuscular Hemoglobin Concent 33, Red Cell Distribution Width 13.5, Platelet Count 239, Mean Platelet Volume 11.1, Immature Granulocyte % (Auto) 1, Neutrophils (%) (Auto) 79H, Lymphocytes (%) (Auto) 8L, Monocytes (%) (Auto) 12, Eosinophils (%) (Auto) 0, Basophils (%) (Auto) 0, Neutrophils # (Auto) 10.5H, Lymphocytes # (Auto) 1.1, Monocytes # (Auto) 1.5H, Eosinophils # (Auto) 0.0, Basophils # (Auto) 0.1, Immature Granulocyte # (Auto) 0.1, Corrected Calcium 9.4, Total Bilirubin 0.3, Aspartate Amino Transf (AST/SGOT) 23, Alanine Aminotransferase (ALT/SGPT) 11, Alkaline Phosphatase 69, B-Type Natriuretic Peptide 420.8H, Total Protein 6.5, Albumin 3.3, Human Chorionic Gonadotropin, Quant 7H 07/06/21 06:11: Blood Gas Puncture Site RT BRACHIAL, Blood Gas Patient Temperature 36.4, Arterial Blood pH 7.29*L, Arterial Blood Partial Pressure CO2 34L, Arterial Blood Partial Pressure O2 106H, Arterial Blood HCO3 16*L, Arterial Blood Total CO2 17.1L, Arterial Blood Oxygen Saturation 98, Arterial Blood Base Excess -9.4L , Ray Test YES-POS, Blood Gas Ventilator Setting NO, Blood Gas Inspired Oxygen 3 07/06/21 07:08: Lactic Acid Level 1.29, Beta-Hydroxybutyrate (Chem panel) 0.74H, Procalcitonin 0 .11H Microbiology 07/03/21 Urine Culture - Preliminary, Resulted Klebsiella pneumoniae Lactobacillus gasseri Physical Exam Physical Exam Vital Signs Vital Signs - First Documented 07/03/21 07/06/21 14:54 05:00 Temp 36.7 Pulse 72 Resp 20 B/P (MAP) 135/42 (73) Pulse Ox 98 O2 Delivery Room Air O2 Flow Rate 4.00 Capillary Refill : Less Than 3 Seconds Height, Weight, BMI Height: '" Weight: lbs. oz. kg; 24.01 BMI Method: General Appearance: No Apparent Distress, WD/WN, Chronically ill Eyes: Right Eye Normal Inspection, Right Eye PERRL HEENT: PERRL/EOMI, Moist Mucous Membranes; No Scleral Icterus (L), No Scleral Icterus (R) Neck: Normal Inspection, Non Tender; No Lymphadenopathy (L), No Lymphadenopathy (R) Respiratory: Lungs Clear, Normal Breath Sounds Cardiovascular: Regular Rate, Rhythm Gastrointestinal: Normal Bowel Sounds, Non Tender, Soft Back: Normal Inspection, No CVA Tenderness, No Vertebral Tenderness Extremity: Normal Capillary Refill, Normal Inspection Neurologic/Psychiatric: Alert, Oriented x3, Disoriented Skin: Normal Color, Warm/Dry Lymphatic: No Adenopathy (Head and neck) A/P-Cardiology Admission Diagnosis DM UTI Elevated BNP HTN Assessment/Plan DM, poorly controlled with HHS, management per medical services UTI, management per medical services Elevated BNP, Echocardiogram was done showing normal left ventricular size, hyperactive ventricle ejection fraction 70 to 75% diastolic dysfunction suggested by Doppler, left atrial dilatation Mild mitral regurgitation PA pressure 40 mmHg. HTN, restart home blood pressure medications and continue to monitor. HLP, maintained on statin as outpatient. Dementia Thank you for allowing us to participate in the management of Ms. Doe. This is Gayathri Andrews PA-C, as a scribe for Dr. Jesus. Patient was seen and evaluated with Gayathri, examination performed, management plan was discussed, agree with the current scribed note, I made few changes to the note using Italic font Patient was laying down in bed, confused, not following commands Had mildly elevated BNP level, conservative management is recommended No signs of heart failure at this time Restart home medication monitor blood pressure Conservative management is recommended GAYATHRI HOSKINS Jul 06, 2021 09:44 ROBERT JESUS MD Jul 06, 2021 14:28
[2021-07-06] MEDS: cefTRIAXone 1 GM/50 ML (PRE-MIX) IV SCH (09:56)
[2021-07-06] MEDS: NS IV 1000 ML 1,000 ML IV SCH ×2 (09:56→13:42)
[2021-07-06] MEDS: ASPIRIN 81 MG CHEW (CHILDREN'S ASA) PO SCH (09:56)
[2021-07-06] MEDS: FAMOTIDINE 20 MG (PEPCID) TABLET PO SCH (09:56)
[2021-07-06] MEDS: amLODIPine 5 MG (NORVASC) TAB PO SCH (09:56)
[2021-07-06] MEDS: LATANOPROST 0.005% (XALATAN) OPHTH SOLN 2.5 ML OP SCH (10:09)
--- NOTE | 2021-07-06 10:10 | Physical Therapy Daily Note ---
PT Daily Note-Current Subjective Patient very restless in bed with alarm activated and family present. Per family, patient did not sleep last night and has received "a bunch of medication that didn't work". Appearance pale, wheezing, etc Mental Status Patient Orientation: Confused, Listless Attachments: Oxygen Transfers SCALE: Activities may be completed with or without assistive devices. 7-Twiddmnldd-lqafdne completes the activity by him/herself with no assistance from a helper. 5-Set-up or Clean-up Assistance-helper sets up or cleans up; patient completes activity. Osprey assists only prior to or following the activity. 4-Supervision or Touching Assistance-helper provides verbal cues and/or touching/steadying and/or contact guard assistance as patient completes activity. Assistance may be provided throughout the activity or intermittently. 3-Partial/Moderate Assistance-helper does LESS THAN HALF the effort. Osprey lifts, holds or supports trunk or limbs, but provides less than half the effort. 2-Substantial/Maximal Assistance-helper does MORE THAN HALF the effort. Osprey lifts or holds trunk or limbs and provides more than half the effort. 8-Bdjeohkmz-zgfaaj does ALL the effort. Patient does none of the effort to complete the activity. Or, the assistance of 2 or more helpers is required for the patient to complete the activity. If activity was not attempted, code reason: 7-Patient Refused. 9-Not Applicable-not attempted and the patient did not perform the activity before the current illness, exacerbation or injury. 10-Not Attempted due to Environmental Limitations-(lack of equipment, weather restraints, etc.). 88-Not Attempted due to Medical Conditions or Safety Concerns. Lying to Sitting/Side of Bed(Q: 2 Sit to Stand (QC): 2 Patient able to participate to reposition up in and side step with assist of PT Assessment Warm blanket applied after session with 4 rails up and alarm activated. Patient appears to be calm at this time. PT Residential Goals Culinary Intern Goals PT Residential Goals Time Frame: Jul 16, 2021 Roll Left & Right (QC): 6 Sit to Lying (QC): 6 Lying-Sitting on Side/Bed(QC): 6 Sit to Stand (QC): 6 Chair/Dqt-sh-Tcztq Xfer(QC): 6 Toilet Transfer (QC): 6 Walk 10 feet (QC): 6 Walk 50ft with 2 Turns (QC): 6 Walk 150 ft (QC): 6 1 Step (curb) (QC): 6 4 Steps (QC): 6 PT Plan Treatment/Plan Treatment Plan: Continue Plan of Care Treatment Plan: Education, Functional Activity Arcenio, Functional Strength, Gait, Safety, Therapeutic Exercise, Transfers Treatment Duration: Jul 16, 2021 Frequency: 6 times per week Estimated Hrs Per Day: .5 hour per day Patient and/or Family Agrees t: Yes Time/GCodes Time In: 846 Time Out: 858 Total Billed Treatment Time: 12 Total Billed Treatment 1 visit FA 12 min LYNN CALHOUN PT Jul 06, 2021 10:10
--- NOTE | 2021-07-06 11:46 | Progress Note - Hospitalist ---
JOHANNA GUIDRY Maty 07/06/21 1146: Subjective HPI/CC On Admission Date Seen by Provider: Jul 06, 2021 Time Seen by Provider: 07:42 Chief complaint: Severe hyperglycemia Subjective/Events-last exam Ms. Doe was very confused this morning and was A&Ox1 this morning, only oriented to person. ROS was unable to be obtained d/t patient status alongside minimal physical exam. Her daughter was at her bedside this morning and provided a history. Her daughter said that last night was a rough night and she was constantly agitated and trying to get out of bed every 15 minutes. She said she would get so agitated so would start to wheeze. We spoke with her daughter about the idea of d/c to a SNF. She seemed amenable to the idea. Focused Exam Lactate Level 07/03/21 15:05: Lactic Acid Level 1.40 07/05/21 10:32: Lactic Acid Level 1.53 07/06/21 07:08: Lactic Acid Level 1.29 Peripheral Pulses: 2+ Radial Pulses (R), 2+ Radial Pulses (L) Objective Exam Vital Signs Vital Signs Date Time Temp Pulse Resp B/P (MAP) Pulse Ox O2 Delivery O2 Flow Rate FiO2 07/06/21 11:24 36.4 70 24 104/60 100 Nasal Cannula 2.00 Capillary Refill : Less Than 3 Seconds General Appearance: Chronically ill, Other (Confused) HEENT: Moist Mucous Membranes Respiratory: Chest Non Tender, Lungs Clear, Normal Breath Sounds, No Accessory Muscle Use, No Respiratory Distress Cardiovascular: Regular Rate, Rhythm, No Murmur, Normal Peripheral Pulses Neurologic/Psychiatric: No Alert (Somnolent, has trouble responding to commands), No Oriented x3 (Oriented only to person); Disoriented Results/Procedures Lab Laboratory Tests 07/05/21 21:04 07/06/21 06:00 Patient resulted labs reviewed. Assessment/Plan Assessment and Plan Assess & Plan/Chief Complaint Assessment HHS - Elevated beta-hydroxybutyrate at 0.30 today, trending down - WBC trending up to 13.3 Diabetes - Noncompliant with checking sugar Acute UTI - Symptoms resolving Dementia - Most likely d/c to SNF rather than home Dehydration Plan IV fluids and closely monitor Transition to subcu insulin Diabetic education for her and her family Social work consult about SNF placement OMAIRA SALAZAR DO 07/07/21 0548: Subjective Subjective/Events-last exam Pt had a difficult night Geodon, Haldol, Ativan all given for aggressive behavior in addition to Zyprexa 5 mg at night Betahydroxybutarate was decreased Sun-downing was apparent by the daughter who spent the night Social work will work on [facility] placement HgbA1C of 14.4 indicating poor control for extended length of time Very complex issues Volume overload, initiated Lasix with good response Review of Systems General: Fatigue, Malaise Neurological: Confusion Objective Exam General Appearance: No Apparent Distress, WD/WN, Chronically ill Respiratory: No Accessory Muscle Use, No Respiratory Distress, Decreased Breath Sounds Cardiovascular: Regular Rate, Rhythm Neurologic/Psychiatric: Alert (Somnolent, has trouble responding to commands), Disoriented Assessment/Plan Assessment and Plan Assess & Plan/Chief Complaint Supportive care Insulin Updated PCP Livier Allen Son seems to be very angry will be on high alert for any abuse potential towards healthcare providers Family declined skilled [facility] about discharging today but not safe in PCP recommended to remain in hospital until safe discharge Hemoglobin A1c was 9.1 in May Supervisory-Addendum Brief Verification & Attestation Participated in pt care: history, MDM, physical Personally performed: exam, history, MDM, supervision of care Care discussed with: Medical Student Procedures: n/a Results interpretation: Verified all documentation Verification and Attestation of Medical Student E/M Service A medical student performed and documented this service in my presence. I reviewed and verified all information documented by the medical student and made modifications to such information, when appropriate. I personally performed the physical exam and medical decision making. Omaira Salazar Jul 07, 2021,05:46 JOHANNA GUIDRY Jul 06, 2021 11:46 OMAIRA SALAZAR DO Jul 07, 2021 05:48
[2021-07-06] MEDS: OLANZapine 5 MG (ZyPREXA) TAB PO SCH (21:46)
[2021-07-07] MEDS: ACETAMINOPHEN 500 MG TAB (TYLENOL) PO PRN ×2 (01:29→11:01)
[2021-07-07 05:48] LABS: BASOPHILS % (AUTO) 0 % (0-10); EOSINOPHILS # (AUTO) 0.2 10^3/uL (0.0-0.3); EOSINOPHILS % (AUTO) 2 % (0-10); HEMATOCRIT 31 % (35-52); HEMOGLOBIN 9.7 g/dL (11.5-16.0); LYMPHOCYTES # (AUTO) 2.6 10^3/uL (1.0-4.0); LYMPHOCYTES % (AUTO) 28 % (12-44); MEAN CORPUSCULAR HEMOGLOBIN 29 pg (25-34); MEAN CORPUSCULAR HGB CONC 32 g/dL (32-36); MEAN CORPUSCULAR VOLUME 91 fL (80-99); MEAN PLATELET VOLUME 11.7 fL (9.0-12.2); MONOCYTES # (AUTO) 0.9 10^3/uL (0.0-1.0); MONOCYTES % (AUTO) 10 % (0-12); NEUTROPHILS # (AUTO) 5.5 10^3/uL (1.8-7.8); NEUTROPHILS % (AUTO) 59 % (42-75); PLATELET COUNT 178 10^3/uL (130-400); WHITE BLOOD COUNT 9.2 10^3/uL (4.3-11.0)
[2021-07-07] MEDS: inSUlin ASPART (NovoLOG) 1 UNIT/0.01 ML (CHARGE PER UNIT) SC SCH ×2 (05:58→11:38)
[2021-07-07 06:12] LABS: ALBUMIN 2.6 GM/DL (3.2-4.5)
[2021-07-07 06:13] LABS: CALCIUM 8.2 MG/DL (8.5-10.1)
[2021-07-07 06:14] LABS: TOTAL PROTEIN 5.3 GM/DL (6.4-8.2)
[2021-07-07 06:16] LABS: BILIRUBIN,TOTAL 0.2 MG/DL (0.1-1.0)
[2021-07-07 06:18] LABS: CREATININE SERUM 1.38 MG/DL (0.60-1.30)
[2021-07-07] MEDS: RT-ALBUTEROL SULF 2.5 MG/3 ML PRE-MIX VIAL INH SCH (07:30)
[2021-07-07] MEDS: FAMOTIDINE 20 MG (PEPCID) TABLET PO SCH (08:36)
[2021-07-07] MEDS: ASPIRIN 81 MG CHEW (CHILDREN'S ASA) PO SCH (08:36)
[2021-07-07] MEDS: amLODIPine 5 MG (NORVASC) TAB PO SCH (08:36)
[2021-07-07] MEDS: LATANOPROST 0.005% (XALATAN) OPHTH SOLN 2.5 ML OP SCH (08:37)
[2021-07-07] MEDS: cefTRIAXone 1 GM/50 ML (PRE-MIX) IV SCH (08:48)
--- NOTE | 2021-07-07 08:53 | Cardiology Progress Note ---
Subjective Date Seen by Provider: Jul 07, 2021 Time Seen by Provider: 08:25 Subjective/Events-last exam Jeanie is awake, sitting up in bed and eating breakfast this morning. , Wisam is here with her. She is alert and oriented to person and time, not place. Pt is feeling much better today and is asking about when she can go home. She denies any history of heart problems, including any history of heart failure, is unable to provide any further information at this time. Pt overall presentation has improved since yesterday. Review of Systems General: Fatigue HEENT: Head Aches Pulmonary: No Dyspnea Cardiovascular: No: Chest Pain, Palpitations, Edema Gastrointestinal: No: Nausea, Vomiting Focused Exam Lactate Level 07/05/21 10:32: Lactic Acid Level 1.53 07/06/21 07:08: Lactic Acid Level 1.29 Objective-Cardiology Exam Last Set of Vital Signs Vital Signs 07/07/21 13:33 Temp 36.1 Pulse 66 Resp 18 B/P (MAP) 123/77 Pulse Ox 96 O2 Delivery Room Air O2 Flow Rate 2.00 I&O Intake and Output 07/07/21 00:00 Intake Total 3200 ml Output Total 550 ml Balance 2650 ml Intake Oral 800 ml IV Total 2400 ml Output Urine Total 550 ml # Voids 5 General: Alert, Cooperative, No Acute Distress, Other (Oriented X2) Lungs: Clear to Auscultation, Normal Air Movement Heart: Regular Rate, Normal S1, Normal S2, No Murmurs Psych/Mental Status: Mood NL Results Lab Laboratory Tests 07/07/21 05:10 A/P-Cardiology Admission Diagnosis DM UTI Elevated BNP HTN Assessment/Plan DM, presenting with HHS - continue management per medical services UTI - continue management per medical services Elevated BNP- - Echocardiogram was done one 07/06/21 showing normal left ventricular size, hyperactive ventricle ejection fraction 70 to 75%, diastolic dysfunction suggested by Doppler, left atrial dilatation - Mild mitral regurgitation - PA pressure 40 mmHg. - asymptomatic at this time HTN - continue on home blood pressure medications and dosing of Carvedilol and Losartan HLP - continue on Simvastatin, per home dosing Dementia - management per medical services - apparent sun-downing noted Supervisory-Addendum Brief Verification & Attestation Participated in pt care: history, MDM, physical Personally performed: exam, history, MDM, supervision of care Care discussed with: Medical Student Procedures: n/a Results interpretation: Verified all documentation Verification and Attestation of Medical Student E/M Service A medical student performed and documented this service in my presence. I reviewed and verified all information documented by the medical student and made modifications to such information, when appropriate. I personally performed the physical exam and medical decision making. Andrzej Jesus, Jul 07, 2021,16:20 ZULMA CORRIGAN MED STUDENT Jul 07, 2021 08:53 ANDRZEJ JESUS MD Jul 07, 2021 16:20
[2021-07-07] MEDS ORDERED: SODIUM BICARBONATE 650 MG TABLET (NON-FORMULARY) PO SCH (09:00)
--- NOTE | 2021-07-07 10:45 | Physical Therapy Daily Note ---
PT Daily Note-Current Subjective Pt in bed upon arrival and agrees to PT. Pt reports she has a headache but does not rate pain. present and reports she was able to sleep better last night. Mental Status Patient Orientation: Confused Transfers SCALE: Activities may be completed with or without assistive devices. 8-Ysdrvevmex-bfdoevv completes the activity by him/herself with no assistance from a helper. 5-Set-up or Clean-up Assistance-helper sets up or cleans up; patient completes activity. [place] assists only prior to or following the activity. 4-Supervision or Touching Assistance-helper provides verbal cues and/or touching/steadying and/or contact guard assistance as patient completes activity. Assistance may be provided throughout the activity or intermittently. 3-Partial/Moderate Assistance-helper does LESS THAN HALF the effort. [place] lifts, holds or supports trunk or limbs, but provides less than half the effort. 2-Substantial/Maximal Assistance-helper does MORE THAN HALF the effort. [place] lifts or holds trunk or limbs and provides more than half the effort. 2-Owaydfqah-urcsbh does ALL the effort. Patient does none of the effort to co mplete the activity. Or, the assistance of 2 or more helpers is required for the patient to complete the activity. If activity was not attempted, code reason: 7-Patient Refused. 9-Not Applicable-not attempted and the patient did not perform the activity before the current illness, exacerbation or injury. 10-Not Attempted due to Environmental Limitations-(lack of equipment, weather restraints, etc.). 88-Not Attempted due to Medical Conditions or Safety Concerns. Sit to Lying (QC): 4 Lying to Sitting/Side of Bed(Q: 3 Sit to Stand (QC): 4 Gait Training Does the Patient Walk?: Yes Distance: 400' Walk 10 feet (QC): 4 Walk 50 ft with 2 Turns(QC): 4 Walk 150 ft (QC): 4 Gait Assistive Device: FWW Ambulates slowly and requires vc's to move over to L side in order to not hit chairs and not get to close to the wall. Exercises Seated Therapy Exercises: Ankle pumps, Long arc quads, Hip flexion, Hamstring Curls Seated Reps: 15 Standing: Sit to Stand Standing Reps: 2 Treatments Pt in bed upon arrival and agrees to PT. Therapist pulls back pts blankets and then pt able to swing legs off of bed but requires Ehsan for torso in order to sit up. Pt then able to perform sit to stand w/ CGA and then amb into [place] 400'. Pt then sits EOB and performs seated exs. Pt then able to TF back to bed and requires CGA/SBA. Therapist places blankets back onto pt and call light nearby and all needs met. Nursing present as PT departs. Assessment Current Status: Good Progress Pt remains very confused this date as pt doesn't remember spending the night in the room w/ her last night despite saying he told her last night when he came into the room. Pt doesn't remember having episode on Monday night that didn't allow her to go home. Pt requires CGA during TFs and during amb and requires skilled verbal cues about body position during ambulation. PT Revenue Accountant Goals Revenue Accountant Goals PT Longterm Goals Time Frame: Jul 16, 2021 Roll Left & Right (QC): 6 Sit to Lying (QC): 6 Lying-Sitting on Side/Bed(QC): 6 Sit to Stand (QC): 6 Chair/Bov-qt-Kjxqu Xfer(QC): 6 Toilet Transfer (QC): 6 Walk 10 feet (QC): 6 Walk 50ft with 2 Turns (QC): 6 Walk 150 ft (QC): 6 1 Step (curb) (QC): 6 4 Steps (QC): 6 PT Plan Problem List Problem List: Safety, Gait Treatment/Plan Treatment Plan: Continue Plan of Care Treatment Plan: Education, Functional Activity Arcenio, Functional Strength, Gait, Safety, Therapeutic Exercise, Transfers Treatment Duration: Jul 16, 2021 Frequency: 6 times per week Estimated Hrs Per Day: .5 hour per day Patient and/or Family Agrees t: Yes Safety Risks/Education Patient Education: Gait Training, Correct Positioning Teaching Recipient: Patient Teaching Methods: Discussion Response to Teaching: Return Demonstration Time/GCodes Time In: 900 Time Out: 917 Total Billed Treatment Time: 17 Total Billed Treatment 1 visit, GT (17min) HENNY OLIVERA PTA Jul 07, 2021 10:45
[2021-07-07] MEDS ORDERED: AMLO-250 PO (12:07)
[2021-07-07] MEDS ORDERED: PEN-53 MC (12:07)
[2021-07-07] MEDS ORDERED: NF-SODBICA PO (12:07)
[2021-07-07] MEDS ORDERED: INSU100I14 SQ (12:07)
--- NOTE | 2021-07-07 12:09 | D/C HH Face to Face Order ---
D/C Face to Face Orders Reconcile Patient Problems Problems Reviewed?: Yes Instructions for Patient Integrity Patient Instructions/FollowUp: Livier Allen Monday as scheduled Physician to follow Patient: Livier Allen Discharge Diet for Home: ADA Diet Patient Problems: DM Dementia Patient Data-Allergies,Ht & Wt Patient Allergies: Coded Allergies: egg (Verified Allergy, Mild, Nausea, 07/04/21) codeine (Verified Allergy, Unknown, 07/03/21) Home Health Need/Face to Face Date of Face to Face: Jul 07, 2021 Clinical Findings: Generalized weakness and fatigue, Instability, Muscle weakness I have seen Pt prmc-af-[id number]: Yes Discharged To: Home Diagnosis/Conditions: DM Patient is Homebound due to: CognItive deficits, Jelly fall risk due to instabilty, Muscle weakness Homebound Status Due to the above stated illness, injury or surgical procedure (medical condition or diagnosis) and associated clinical findings, the patient is homebound because of his/her inability to leave home except with aid of a supportive device and/or person AND leaving the home requires a considerable and taxing effort or is medically contraindicated. Pt req the following assistanc: Walker Home Health Nursing Orders Home Health Services Order: Nursing Services, Computer Help Desk Representative-Evaluate & Treat, Physical Therapy-Evaluate & Treat Home Health Infusion Therapy Line Start Date: Jul 03, 2021 Certify Stmt I certify that this patient is under my care and that I, a nurse practitioner or a physician; a corporate administrative assistant working with me, had a face to face encounter that - meets the physician face to face encounter requirements with this patient as dated. MARCUS SALAZAR DO Jul 07, 2021 12:09
--- NOTE | 2021-07-07 12:10 | Discharge Summary ---
Discharge Summary Hospital Course Was the Problem List Reviewed?: Yes Problems/Dx: (1) Hyperosmolar hyperglycemic state (HHS) (2) Diabetes mellitus with hyperglycemia, without long-term current use of insulin Status: Acute Qualifiers: Qualified Codes: E11.65 - Type 2 diabetes mellitus with hyperglycemia (3) Acute cystitis with hematuria Status: Acute Hospital Course Date of Admission: Jul 03, 2021 at 18:15 Admission Diagnosis : Family Physician/Provider: [facility] Date of Discharge: 07/07/21 Discharge Diagnosis: Hyperosmolar hyperglycemic nonketotic state, UTI, dementia with sundowning Hospital Course: Hospital course: Pt had a lengthy hospital course for five days after she was admitted for hyperosmolar hyperglycemic nonketotic state requiring insulin drip and aggressive IV fluid resuscitation. UTI treated with Rocephin for the full days that she was in hospital and that completed treatment. HgbA1C was noted to be 14 indicating very poor control in the last several months. Spoke with Livier Allen for preparation of safe discharge, she recommended PT and OT and will have close follow up with her as an outpatient. Novolog insulin three units before meals was initiated at discharge, long-acting intended to make her hypoglycemic and a walker was provided along with home health. She did had significant sun-downing indicating severe dementia. Labs and Pending Lab Test: Laboratory Tests 07/06/21 15:48: Glucometer 125H 07/06/21 21:40: Glucometer 148H 07/07/21 05:10: White Blood Count 9.2, Red Blood Count 3.37L, Hemoglobin 9.7L, Hematocrit 31L, Mean Corpuscular Volume 91, Mean Corpuscular Hemoglobin 29, Mean Corpuscular Hemoglobin Concent 32, Red Cell Distribution Width 14.0, Platelet Count 178, Mean Platelet Volume 11.7, Immature Granulocyte % (Auto) 0, Neutrophils (%) (Auto) 59, Lymphocytes (%) (Auto) 28, Monocytes (%) (Auto) 10, Eosinophils (%) (Auto) 2, Basophils (%) (Auto) 0, Neutrophils # (Auto) 5.5, Lymphocytes # (Auto) 2.6, Monocytes # (Auto) 0.9, Eosinophils # (Auto) 0.2, Basophils # (Auto) 0.0, Immature Granulocyte # (Auto) 0.0, Sodium Level 138, Potassium Level 4.0, Chloride Level 111H, Carbon Dioxide Level 17L, Anion Gap 10, Blood Urea Nitrogen 12, Creatinine 1.38H, Estimat Glomerular Filtration Rate 37, BUN/Creatinine Ratio 9, Glucose Level 95, Calcium Level 8.2L, Corrected Calcium 9.3, Total Bilirubin 0.2, Aspartate Amino Transf (AST/SGOT) 20, Alanine Aminotransferase (ALT/SGPT) 8, Alkaline Phosphatase 59, Total Protein 5.3L, Albumin 2.6L 07/07/21 05:57: Glucometer 81 07/07/21 11:27: Glucometer 111H Microbiology 07/03/21 Urine Culture - Final, Complete Klebsiella pneumoniae Lactobacillus gasseri Home Meds Active Advocate Pen Needle (Pen Needle, Diabetic) 1 Each Dis.needle Each ACHS Novolog Flexpen (Insulin Aspart) 300 Units/3 Ml Solution 3 Units SQ AC Sodium Bicarbonate 650 Mg Tablet 650 Mg PO BID Amlodipine Besylate 5 Mg Tablet 5 Mg PO DAILY Reported Xalatan (Latanoprost) 2.5 Ml Drops 1 Drop OP DAILY Stool Softener (Docusate Sodium) 100 Mg Capsule 100 Mg PO DAILY PRN Tylenol Extra Strength (Acetaminophen) 500 Mg Tablet 500 Mg PO Q8H PRN Iron (Ferrous Sulfate) 325 Mg Tablet 325 Mg PO DAILY Aspirin 81 Mg Tab.chew 81 Mg PO DAILY Simvastatin 20 Mg Tablet 20 Mg PO DAILY Carvedilol 12.5 Mg Tablet 25 Mg PO BID TAKES 2 (12.5MG) TABLETS Losartan Potassium 50 Mg Tablet 50 Mg PO DAILY Farxiga (Dapagliflozin Propanediol) 10 Mg Tablet 10 Mg PO DAILY Assessment/Pt Instructions PCP on Monday Discharge Planning: <30 minutes discharge planning Discharge Instructions Discharge Diet: ADA Diet Discharge Physical Examination Vital Signs Vital Signs Date Time Temp Pulse Resp B/P (MAP) Pulse Ox O2 Delivery O2 Flow Rate FiO2 07/07/21 12:00 36.1 66 18 123/77 96 Room Air 07/06/21 15:02 2.00 General Appearance: No Apparent Distress, WD/WN, Chronically ill Allergies: Coded Allergies: egg (Verified Allergy, Mild, Nausea, 07/04/21) codeine (Verified Allergy, Unknown, 07/03/21) Discharge Summary Date of Admission Jul 03, 2021 at 18:15 Date of Discharge Discharge Date: Jul 07, 2021 Admission Diagnosis Assessment: Hyperosmolar hyperglycemic nonketotic state Diabetes noncompliant with checking sugar Acute UTI Poor recall/dementia Dehydration Plan: Transition to subcu insulin Moved to fourth floor Diabetic education Discharge Diagnosis Supportive care Insulin Updated PCP Livier Tiffany Son seems to be very angry will be on high alert for any abuse potential towards healthcare providers Family declined skilled [facility] about discharging today but not safe in PCP recommended to remain in hospital until safe discharge Hemoglobin A1c was 9.1 in May (1) Hyperosmolar hyperglycemic state (HHS) (2) Diabetes mellitus with hyperglycemia, without long-term current use of insulin Status: Acute Qualifiers: Qualified Codes: E11.65 - Type 2 diabetes mellitus with hyperglycemia (3) Acute cystitis with hematuria Status: Acute MARCUS SALAZAR DO Jul 07, 2021 12:10
[2021-07-07 13:33] VITALS: BP 123/77
== END 2021-07-07 13:05 | disposition home health service (06) | DRG 638 ==
LOC: EDUNIT# 14:54 → ER FS 14:55 → ICU 18:15 → 4TH 07-04 12:03
PROVIDERS: ADMIT Internal Medicine; ATTEND Internal Medicine
DX: E11.00 Type 2 diabetes mellitus with hyperosmolarity without nonketotic hyperglycemic-hyperosmolar coma (NKHHC) (principal); N30.01 Acute cystitis with hematuria; F05 Delirium due to known physiological condition; N17.9 Acute kidney failure, unspecified; E11.65 Type 2 diabetes mellitus with hyperglycemia; B96.1 Klebsiella pneumoniae [K. pneumoniae] as the cause of diseases classified elsewhere; B96.89 Other specified bacterial agents as the cause of diseases classified elsewhere; E86.0 Dehydration; I34.0 Nonrheumatic mitral (valve) insufficiency; E78.5 Hyperlipidemia, unspecified; F03.90 Unspecified dementia, unspecified severity, without behavioral disturbance, psychotic disturbance, mood disturbance, and anxiety; H54.7 Unspecified visual loss; I11.9 Hypertensive heart disease without heart failure; Z91.19 Patient's noncompliance with other medical treatment and regimen
CPT/HCPCS: 36415; 36600; 70450; 71045; 80048; 80053; 81000; 82010; 82805; 82947; 83036; 83605; 83735; 83880; 84100; 84145; 84484; 84702; 85025; 85027; 85610; 85730; 87040; 87077; 87088; 87186; 93005; 93041; 93306; 94640; 94760

== ENCOUNTER → 2021-11-25 | Outpatient (CLI) | payer MEDICARE, OTHER ==
[~2021-11-25] MED LIST: ACET-2267 PO; AMLO-250 PO; ASPI-999 PO; CARV12.53 PO; DAPA10TA PO; DOCU-26 PO; FERR-84 PO; INSU100I14 SQ; LATA2.5D19 OP; LATA7.5D OP; LOSA50TA63 PO; NF-SODBICA PO; PEN-53 MC; SIMV20TA26 PO
== END ==
LOC: CARDFS 11:35
PROVIDERS: ATTEND Internal Medicine Cardiovascular Disease
DX: R60.9 Edema, unspecified (principal)
CPT/HCPCS: 93306

== ENCOUNTER → 2022-01-07 | Outpatient (CLI) | payer MEDICARE, OTHER ==
--- NOTE | 2022-01-07 13:30 | Diagnostic Imaging Report ---
INDICATION: Hip and back pain. TIME OF EXAM: 12:44 PM FINDINGS: 2 views lumbar spine were obtained. There is normal curvature of the lumbar spine. There is grade 1 spondylolisthesis of L5 on S1. Vertebral body heights are well-maintained. Disc spaces are fairly well preserved. No fractures are seen. Extensive atherosclerotic calcifications within the abdominal aorta are noted. There is multilevel lumbar facet arthropathy. IMPRESSION: Facet arthropathy with spondylolisthesis L5 on S1. No acute bony abnormality is detected. Dictated by: Dictated on workstation # [id number]
--- NOTE | 2022-01-07 14:39 | Diagnostic Imaging Report ---
Indication: Hip and back pain. Time of Exam: 12:45 PM 2 views of the left hip demonstrate normal femoral acetabular alignment. Femoral head and neck appear intact. No fractures are seen. Vascular calcifications are noted. Impression: No acute bony abnormality is detected. Dictated by: Dictated on workstation # [id number]
== END ==
LOC: RAD FS 12:07
PROVIDERS: ATTEND Nurse Practitioner Family
DX: M47.817 Spondylosis without myelopathy or radiculopathy, lumbosacral region (principal); M43.17 Spondylolisthesis, lumbosacral region
CPT/HCPCS: 72100; 73502

== ENCOUNTER 2022-11-04 01:33 | Emergency (ER) | payer MEDICARE, OTHER ==
[~2022-11-04] VITALS: Ht 152.4 cm; Wt 56.6 kg
--- NOTE | 2022-11-04 01:58 | ED GI ---
General Stated Complaint: NAUSEA Source of Information: Patient, Family Exam Limitations: No Limitations History of Present Illness Date Seen by Provider: Nov 04, 2022 Time Seen by Provider: 01:37 Initial Comments 81yoF with PMH of HTN, HLD, DM, and dementia coming in due to epigastric discomfort and nausea. Symptoms started a little bit before midnight, she was not asleep yet. She is mostly feeling like she is having some indigestion and like she needs to vomit, however she has not vomited. Has been pretty constant, has not taken any medicines for it. Had a normal bowel movement in the evening yesterday. Also has some dysuria at times. Denies any severe abdominal pain, actual vomiting, diarrhea, bloody stools, chest pain, shortness of breath, focal weakness or numbness, or any other concerns. She believes she has been taking her medicine as prescribed. Glucose has been less than 200 on her CGM. She is otherwise denying any other acute complaints Allergies and Home Medications Allergies Coded Allergies: egg (Verified Allergy, Mild, Nausea, 07/04/21) codeine (Verified Allergy, Unknown, 07/03/21) Patient Home Medication List Home Medication List Reviewed: Yes Acetaminophen (Tylenol Extra Strength) 500 Mg Tablet, 500 MG PO Q8H PRN for PAIN-MILD (1-4), (Reported) Entered as Reported by: YAZ MURRIETA on 07/05/21 1432 Amlodipine Besylate (Amlodipine Besylate) 5 Mg Tablet, 5 MG PO DAILY Prescribed by: MARCUS SALAZAR on 07/07/21 1207 Aspirin (Aspirin) 81 Mg Tab.chew, 81 MG PO DAILY, (Reported) Entered as Reported by: YAZ MURRIETA on 07/05/21 1431 Carvedilol (Carvedilol) 12.5 Mg Tablet, 25 MG PO BID, (Reported) Entered as Reported by: YAZ MURRIETA on 07/05/21 1428 Cefdinir (Cefdinir) 300 Mg Capsule, 300 MG PO BID Prescribed by: ANMOL MERRITT on 11/04/22 0228 Docusate Sodium (Stool Softener) 100 Mg Capsule, 100 MG PO DAILY PRN for CONSTIPATION-1ST LINE, (Reported) Entered as Reported by: YAZ MURRIETA on 07/05/21 1434 Famotidine (Pepcid) 20 Mg Tablet, 20 MG PO DAILY Prescribed by: ANMOL EMRRITT on 11/04/22 0228 Ferrous Sulfate (Iron) 325 Mg Tablet, 325 MG PO DAILY, (Reported) Entered as Reported by: YAZ MURRIETA on 07/05/21 1432 Insulin Aspart (Novolog Flexpen) 300 Units/3 Ml Solution, 3 UNITS SQ AC Prescribed by: MARCUS SALAZAR on 07/07/21 1207 Latanoprost (Xalatan) 2.5 Ml Drops, 1 DROP OP DAILY, (Reported) Entered as Reported by: YAZ MURRIETA on 07/05/21 1454 Ondansetron (Ondansetron Odt) 4 Mg Tab.rapdis, 4 MG SL Q6H PRN for NAUSEA/VOMITING Prescribed by: ANMOL MERRITT on 11/04/22227 Pen Needle, Diabetic (Advocate Pen Needle) 1 Each Dis.needle, EACH [facility] ACHS, (DME) Prescribed by: MARCUS SALAZAR on 07/07/21 120 Simvastatin (Simvastatin) 20 Mg Tablet, 20 MG PO DAILY, (Reported) Entered as Reported by: YAZ MURRIETA on 07/05/21 1430 Sodium Bicarbonate (Sodium Bicarbonate) 650 Mg Tablet, 650 MG PO BID Prescribed by: MARCUS SALAZAR on 07/07/21 1207 Review of Systems Review of Systems Constitutional: No fever EENTM: No Symptoms Reported Respiratory: No Symptoms Reported Cardiovascular: No Symptoms Reported Gastrointestinal: See HPI Genitourinary: See HPI Musculoskeletal: no symptoms reported Skin: no symptoms reported Psychiatric/Neurological: No Symptoms Reported Hematologic/Lymphatic: No Symptoms Reported Past [id number] Hx Patient Social History Tobacco Use?: No Immunizations Up To Date First/Initial COVID19 Vaccinat: Not Currently Vaccinated Past Medical History Surgery/Hospitalization HX: DM; HTN; dementia; HLD Dementia Diabetes, Non-Insulin dep Physical Exam Vital Signs Vital Signs - First Documented 11/04/22 02:08 Temp 36.2 Pulse 74 Resp 18 B/P (MAP) 196/77 (116) Pulse Ox 98 O2 Delivery Room Air Capillary Refill : Height/Weight/BMI Height: '" Weight: lbs. oz. kg; 24.01 BMI Method: General Appearance: WD/WN, no apparent distress HEENT: PERRL/EOMI, normal ENT inspection, pharynx normal Neck: non-tender, full range of motion, supple, normal inspection Respiratory: chest non-tender, lungs clear, normal breath sounds, no respiratory distress, no accessory muscle use Cardiovascular: regular rate, rhythm, no edema, no murmur Gastrointestinal: normal bowel sounds, soft; No distended, No guarding, No rebound; tenderness (mild epigastric discomfort) Extremities: normal range of motion, non-tender, normal inspection, no pedal edema, no calf tenderness, normal capillary refill Back: normal inspection, no CVA tenderness Neurologic/Psychiatric: no motor/sensory deficits, alert, normal mood/affect Skin: normal color, warm/dry Lymphatic: no adenopathy Focused Exam Lactate Level 11/04/22 01:50: Lactic Acid Level 0.84 Lactic Acid Level Laboratory Tests Test 11/04/22 01:50 Lactic Acid Level 0.84 MMOL/L (0.50-2.00) Progress/Results/Core Measures Results/Orders Lab Results Laboratory Tests Test 11/04/22 01:40 11/04/22 01:49 11/04/22 01:50 Range/Units Urine Color YELLOW Urine Clarity TURBID Urine pH 6.5 5-9 Urine Specific [place] 1.025 H 1.016-1.022 Urine Protein 2+ H NEGATIVE Urine Glucose (UA) NEGATIVE NEGATIVE Urine Ketones NEGATIVE NEGATIVE Urine Nitrite POSITIVE H NEGATIVE Urine Bilirubin NEGATIVE NEGATIVE Urine Urobilinogen 0.2 < = 1.0 MG/DL Urine Leukocyte Esterase 1+ H NEGATIVE Urine RBC (Auto) 1+ H NEGATIVE Urine RBC 0-2 /HPF Urine WBC 50-100 H /HPF Urine Squamous Epithelial Cells 2-5 /HPF Urine Crystals NONE /LPF Urine Bacteria LARGE H /HPF Urine Casts NONE /LPF Urine Mucus SMALL H /LPF Urine Culture Indicated YES Glucometer 152 H 70-110 MG/DL White Blood Count 9.7 4.3-11.0 10^3/uL Red Blood Count 3.87 3.80-5.11 10^6/uL Hemoglobin 10.9 L 11.5-16.0 g/dL Hematocrit 34 L 35-52 % Mean Corpuscular Volume 87 80-99 fL Mean Corpuscular Hemoglobin 28 25-34 pg Mean Corpuscular Hemoglobin Concent 32 32-36 g/dL Red Cell Distribution Width 13.2 10.0-14.5 % Platelet Count 266 130-400 10^3/uL Mean Platelet Volume 10.3 9.0-12.2 fL Immature Granulocyte % (Auto) 0 % Neutrophils (%) (Auto) 62 42-75 % Lymphocytes (%) (Auto) 27 12-44 % Monocytes (%) (Auto) 8 0-12 % Eosinophils (%) (Auto) 2 0-10 % Basophils (%) (Auto) 1 0-10 % Neutrophils # (Auto) 6.0 1.8-7.8 10^3/uL Lymphocytes # (Auto) 2.6 1.0-4.0 10^3/uL Monocytes # (Auto) 0.8 0.0-1.0 10^3/uL Eosinophils # (Auto) 0.2 0.0-0.3 10^3/uL Basophils # (Auto) 0.1 0.0-0.1 10^3/uL Immature Granulocyte # (Auto) 0.0 0.0-0.1 10^3/uL Sodium Level 138 135-145 MMOL/L Potassium Level 4.3 3.6-5.0 MMOL/L Chloride Level 107 98-107 MMOL/L Carbon Dioxide Level 22 21-32 MMOL/L Anion Gap 9 5-14 MMOL/L Blood Urea Nitrogen 18 7-18 MG/DL Creatinine 1.38 H 0.60-1.30 MG/DL Estimat Glomerular Filtration Rate 38 BUN/Creatinine Ratio 13 Glucose Level 163 H 70-105 MG/DL Lactic Acid Level 0.84 0.50-2.00 MMOL/L Calcium Level 8.7 8.5-10.1 MG/DL Corrected Calcium 9.1 8.5-10.1 MG/DL Magnesium Level 1.8 1.6-2.4 MG/DL Total Bilirubin 0.3 0.1-1.0 MG/DL Aspartate Amino Transf (AST/SGOT) 10 5-34 U/L Alanine Aminotransferase (ALT/SGPT) < 5 0-55 U/L Alkaline Phosphatase 101 40-136 U/L Troponin I < 0.30 <0.30 NG/ML Total Protein 7.0 6.4-8.2 GM/DL Albumin 3.5 3.2-4.5 GM/DL Lipase 49 8-78 U/L My Gosia Elise - ANMOL MERRITT MD Metoclopramide Injection (Reglan Injecti (11/04/22 02:00) Acetaminophen Tablet (Tylenol Tablet) (11/04/22 02:00) Antacid Suspension (Mylanta Suspension (11/04/22 02:00) Famotidine Tablet (Pepcid Tablet) (11/04/22 02:00) Cbc With Automated Diff (11/04/22 01:47) Comprehensive Metabolic Panel (11/04/22 01:47) Lactic Acid Analyzer (11/04/22 01:47) Lipase (11/04/22 01:47) Magnesium (11/04/22 01:47) Ua Culture If Indicated (11/04/22 01:47) Troponin I Fs (11/04/22 01:47) Accucheck Stat ONCE (11/04/22 01:47) Ed Iv/Invasive Line Start (11/04/22 01:47) Ekg Tracing (11/04/22 01:47) Amlodipine Tablet (Norvasc Tablet) (11/04/22 02:00) Urine Culture (11/04/22 01:40) Ceftriaxone 1 Gm Pre-Mix (Rocephin 1 Gm (11/04/22 02:30) Medications Given in ED Current Medications Medications Dose Ordered Sig/Sebastian Route Start Time Stop Time Status Last Admin Dose Admin Acetaminophen 1,000 mg ONCE ONCE PO 11/04/22 02:00 11/04/22 02:01 DC 11/04/22 01:59 1,000 MG Al Hydrox/Mg Hydrox/Simethicone 30 ml ONCE ONCE PO 11/04/22 02:00 11/04/22 02:01 DC 11/04/22 01:59 30 ML Amlodipine Besylate 5 mg ONCE ONCE PO 11/04/22 02:00 11/04/22 02:01 DC 11/04/22 01:59 5 MG Famotidine 20 mg ONCE ONCE PO 11/04/22 02:00 11/04/22 02:01 DC 11/04/22 01:59 20 MG Metoclopramide HCl 5 mg ONCE ONCE IVP 11/04/22 02:00 11/04/22 02:01 DC 11/04/22 01:59 5 MG Vital Signs/I&O 11/04/22 02:08 Temp 36.2 Pulse 74 Resp 18 B/P (MAP) 196/77 (116) Pulse Ox 98 O2 Delivery Room Air Progress Progress Note : Progress Note 81-year-old female with above history coming in due to epigastric discomfort, nausea, and dysuria. ABCs were intact and vitals were stable on presentation although she is hypertensive. She thinks she took her medications for blood pr essure, but is forgetful with her dementia. Physical exam with a soft abdomen and only mild epigastric discomfort but nothing significant even with deep palpation. An IV was placed and basic labs were obtained including LFTs and lactic acid. She was given a GI cocktail as well as nausea medication. She was also given her daily dose of her amlodipine. Blood glucose Bernal 152. EKG ordered and interpreted by me due to epigastric discomforts due to the potential for an atypical chest pain type picture. On my interpretation there are no acute ischemic changes, and appears similar to prior EKG from 2010. I did do a chart review of the patient, and she was admitted in June 2021 for hyperglycemic hyperosmolar state. She had an echo at that time showing hyperdynamic EF greater than 70%. Labs significant for normal white blood cell count, creatinine at her baseline, normal electrolytes essentially, normal lactic acid, negative troponin. After GI cocktail her symptoms almost completely resolved. Could be gastritis versus gastroparesis given her diabetes history versus certainly some of her symptoms from cystitis with urinalysis with concerns for infection. I checked the previous microbiology report, and her urine has previously grown out Klebsiella which was sensitive to cephalosporins. Repeat abdominal exam reassuring with no pain. CT imaging therefore not ordered given reassuring findings. I believe she is otherwise stable for discharge with outpatient follow-up. Medicines for nausea and antibiotics will be sent to her pharmacy. She was sent home with strict return precautions. Initial ECG Impression Date: Nov 04, 2022 Initial ECG Impression Time: 01:55 Initial ECG Rate: 69 Initial ECG Rhythm: Normal Sinus Comment Narrow QRS with a duration of 114 ms, incomplete right bundle branch block, left anterior fascicular block, Q waves in the inferior leads, no ST changes or T wave abnormalities, appears similar to prior EKG from 2020 Departure Impression Primary Impression: ACUTE CYSTITIS WITHOUT HEMATURIA Additional Impression: Nausea alone Disposition: 01 HOME, SELF-CARE Condition: Stable Departure-Patient Inst. Decision time for Depature: 02:45 Referrals: NICOLE FAJARDO APRN (PCP) Primary Care Physician [facility] (Family) Primary Care Physician Patient Instructions: Urinary Tract Infection, Adult (DC), Nausea and Vomiting, Adult ED Add. Discharge Instructions: You do have a urine infection which can cause some of the symptoms you are having. Antibiotics will be sent to your pharmacy as well as some other medications to potentially help with nausea. If symptoms persist, please call your regular doctor to have a follow-up. Scripts Famotidine (Pepcid) 20 Mg Tablet 20 MG PO DAILY for 14 Days, #14 TAB Prov: ANMOL MERRITT MD 11/04/22 Ondansetron (Ondansetron Odt) 4 Mg Tab.rapdis 4 MG SL Q6H PRN for NAUSEA/VOMITING for 5 Days, #20 TAB Prov: ANMOL MERRITT MD 11/04/22 Cefdinir (Cefdinir) 300 Mg Capsule 300 MG PO BID for 7 Days, #14 CAP Prov: ANMOL MERRITT MD 11/04/22 ANMOL MERRITT MD Nov 04, 2022 01:58
[2022-11-04] MEDS ORDERED: ACETAMINOPHEN 500 MG TAB (TYLENOL) PO ONE (02:00)
[2022-11-04] MEDS ORDERED: ANTACID SUSP 30 ML UDC (MYLANTA) PO ONE (02:00)
[2022-11-04] MEDS ORDERED: METOCLOPRAMIDE INJ 10 MG/2 ML (REGLAN) IVP ONE (02:00)
[2022-11-04] MEDS ORDERED: amLODIPine 5 MG (NORVASC) TAB PO ONE (02:00)
[2022-11-04] MEDS ORDERED: FAMOTIDINE 20 MG (PEPCID) TABLET PO ONE (02:00)
[2022-11-04 02:03] LABS: BASOPHILS # (AUTO) 0.1 10^3/uL (0.0-0.1); BASOPHILS % (AUTO) 1 % (0-10); EOSINOPHILS # (AUTO) 0.2 10^3/uL (0.0-0.3); EOSINOPHILS % (AUTO) 2 % (0-10); HEMATOCRIT 34 % (35-52); HEMOGLOBIN 10.9 g/dL (11.5-16.0); LYMPHOCYTES # (AUTO) 2.6 10^3/uL (1.0-4.0); LYMPHOCYTES % (AUTO) 27 % (12-44); MEAN CORPUSCULAR HEMOGLOBIN 28 pg (25-34); MEAN CORPUSCULAR HGB CONC 32 g/dL (32-36); MEAN CORPUSCULAR VOLUME 87 fL (80-99); MEAN PLATELET VOLUME 10.3 fL (9.0-12.2); MONOCYTES # (AUTO) 0.8 10^3/uL (0.0-1.0); MONOCYTES % (AUTO) 8 % (0-12); NEUTROPHILS % (AUTO) 62 % (42-75); PLATELET COUNT 266 10^3/uL (130-400); WHITE BLOOD COUNT 9.7 10^3/uL (4.3-11.0)
[2022-11-04 02:05] LABS: BILIRUBIN,URINE NEGATIVE (NEGATIVE); CLARITY,URINE TURBID; COLOR,URINE YELLOW; GLUCOSE, URINE (UA) NEGATIVE (NEGATIVE); KETONES,URINE NEGATIVE (NEGATIVE); LEUKOCYTE ESTERASE ,URINE 1+ (NEGATIVE); NITRITE,URINE POSITIVE (NEGATIVE); PH,URINE 6.5 (5-9); PROTEIN,URINE 2+ (NEGATIVE)
[2022-11-04 02:19] LABS: BACTERIA,URINE LARGE /HPF; RBC,URINE 0-2 /HPF; WBC,URINE 50-100 /HPF
[2022-11-04 02:24] LABS: BUN/CREATININE RATIO 13; CALCIUM 8.7 MG/DL (8.5-10.1); CARBON DIOXIDE 22 MMOL/L (21-32); CHLORIDE 107 MMOL/L (98-107); CREATININE SERUM 1.38 MG/DL (0.60-1.30); GFR ESTIMATED 38; GLUCOSE 163 MG/DL (70-105); MAGNESIUM 1.8 MG/DL (1.6-2.4); POTASSIUM 4.3 MMOL/L (3.6-5.0); SODIUM 138 MMOL/L (135-145)
[2022-11-04 02:25] LABS: ALANINE AMINOTRANSFERASE < 5 U/L (0-55); ALBUMIN 3.5 GM/DL (3.2-4.5); ALKALINE PHOSPHATASE 101 U/L (40-136); BILIRUBIN,TOTAL 0.3 MG/DL (0.1-1.0); LIPASE 49 U/L (8-78)
[2022-11-04] MEDS ORDERED: FAMO-119 PO (02:28)
[2022-11-04] MEDS ORDERED: ONDA4TAB11 SL (02:28)
[2022-11-04] MEDS ORDERED: CEFD300C3 PO (02:28)
[2022-11-04] MEDS ORDERED: cefTRIAXone 1 GM PRE-MIX 50 ML IV ONE (02:30)
[2022-11-04 02:46] VITALS: BP 163/68
== END 2022-11-04 02:47 | disposition home or self-care (01) ==
LOC: EDUNIT# 01:33 → ER FS 01:34
DX: N30.00 Acute cystitis without hematuria (principal); R11.0 Nausea; I45.2 Bifascicular block; F03.90 Unspecified dementia, unspecified severity, without behavioral disturbance, psychotic disturbance, mood disturbance, and anxiety; I10 Essential (primary) hypertension; Z79.899 Other long term (current) drug therapy; Z28.310 Unvaccinated for COVID-19
CPT/HCPCS: 36415; 80053; 81000; 82947; 83605; 83690; 83735; 84484; 85025; 87077; 87088; 87186; 93005